=== PATIENT | female | born 2005 | race Caucasian/White ===

== ENCOUNTER 2023-06-08 21:39 | Outpatient (CLI) | payer MEDICAID, SELFPAY ==
[2023-06-08 22:02] VITALS: BP 124/64; PULSE 80; PULSE 83; TEMP 37.2; O2SAT 98
[2023-06-08 22:08] VITALS: BMI 28.0
[2023-06-08 23:34] VITALS: TEMP 36.7
[2023-06-08 23:35] VITALS: BP 128/70; PULSE 67; PULSE 72; O2SAT 98
--- NOTE | 2023-06-09 05:29 | OB.TRI.NOTE ---
HPI - General General Date of Admission: 06/08/23 Date of Service: 06/08/23 Chief Complaint: contractions HPI Narrative JESSIE BECKER, is a 17 F 1 para 0 Maternal Data Information Final RASHI: 07/13/23 Gestational age: 35 0/7 PFSH PFSH Home Medications acetaminophen 650 mg tablet,extended release (8 Hour Pain Reliever) 650 mg PO Q12H PRN see provid 06/08/23 [History Last Taken 06/08/23 19:00 500 mg] vit no.95-ferrous fumarate 28 mg-folic acid 800 mcg tablet () 1 tab PO DAILY 06/08/23 [History Last Taken 06/08/23 10:00] Allergy/AdvReac Type Severity Reaction Status Date / Time famotidine [From Pepcid] Allergy Mild Other Verified 06/08/23 22:11 NST FHR Rate Baby A Baseline: 120 Variability:: Moderate Accelerations:: 15 x 15 Decelerations:: None NST Reactive:: Yes FHR Category:: Category I Uterine Activity:: irreg ctxs Assessment & Plan (1) High-risk in third trimester: PLAN: Threatened labor at 35 weeks gestation. No evidence of active labor. Discharged home to follow-up this week in the office as scheduled or return to labor and delivery as needed. (2) Threatened labor, antepartum:
== END 2023-06-09 00:04 | disposition home or self-care (01) ==
LOC: WPOUT 22:00 → WP 22:01
PROVIDERS: Referring Provider Obstetrics & Gynecology; Visit Provider Obstetrics & Gynecology
DX: O60.03 Preterm labor without delivery, third trimester (principal); Z3A.35 35 weeks gestation of pregnancy
CPT/HCPCS: 59025; 59050; 99221; G0378

== ENCOUNTER 2023-06-23 13:45 | Outpatient (CLI) | payer MEDICAID, SELFPAY ==
[2023-06-23] VITALS (14 sets, daily range): BP systolic 121–143; BP diastolic 61–85; PULSE 62–84; TEMP 37.3; O2SAT 98; BMI 28.7
[2023-06-23 15:22] LABS: Hematocrit 34.7 % (37-47); Hemoglobin 11.3 g/dL (12.0-15.0); Mean Corp Hgb Conc 32.6 g/dL (32-36); Mean Corpuscular Hgb 29.5 pg (27.0-32.0); Mean Corpuscular Volume 90.6 fL (81-99); Mean Platelet Vol. 12.6 fl (6.2-12.0); Platelet Count 231 K/mm3 (150-450); RBC Distribution Width CV 12.7 % (11.6-14.6); RBC Distribution Width SD 41.9 fl (35.1-43.9); Red Blood Count 3.83 M/mm3 (4.2-5.4)
[2023-06-23 15:37] LABS: AST(SGOT) 17 U/L (15-37); Alanine Aminotransfer ALT/SGPT 16 U/L (13-56); Creatinine, Serum 0.66 mg/dL (0.55-1.02); EST Glomerular Filtration Rate 121 mL/min (>60); Est Glom Filt Rate - Afr Amer 146 mL/min (>60); Estimated Creatinine Clearance 137.79 ml/min; Uric Acid 4.9 mg/dL (2.6-6.0)
[2023-06-23 16:22] LABS: Protein, Urine (Random) 15.7 mg/dL (<11.9); Protein:Creat Ratio 239 mg/g CRE (0-200)
--- NOTE | 2023-06-23 20:52 | OB.TRI.NOTE ---
HPI - General General Date of Admission: 06/23/23 Date of Service: 06/23/23 Chief Complaint: contractions HPI Narrative JESSIE BECKER, is a 17 F who presents with contractions for r/o labor. No vb or LOF. No headache. She reports blurred vision that is not new for her and she says she has this at baseline . No other visual changes. No N/V. PFSH PFSH Home Medications acetaminophen 650 mg tablet,extended release (8 Hour Pain Reliever) 650 mg PO Q12H PRN see provid 06/08/23 [History Last Taken 06/08/23 19:00 500 mg] vit no.95-ferrous fumarate 28 mg-folic acid 800 mcg tablet () 1 tab PO DAILY 06/08/23 [History Last Taken 06/22/23] Allergy/AdvReac Type Severity Reaction Status Date / Time olive oil Allergy Severe Other Verified 06/23/23 14:23 famotidine [From Pepcid] Allergy Mild Other Verified 06/23/23 14:21 NST FHR Rate Baby A Baseline: 125 Variability:: Moderate Accelerations:: 15 x 15 Decelerations:: None NST Reactive:: Yes FHR Category:: Category I Uterine Activity:: irregular ctx's Assessment & Plan (1) 37 weeks gestation of : (2) Irregular contractions: PLAN: Pt presents to L&D with ctx's. No cervical change and ctx's are irregular. Does not appear to be in labor at this time. (3) Elevated blood pressure reading: PLAN: Had isolated mild range BP on admission. Serial BP's then normal. Pre e labs WNL. No symptoms of pre e at this time. Pre e precautions given and she has an office visit this week.
== END 2023-06-23 16:35 | disposition home or self-care (01) ==
LOC: WPOUT 13:50 → WP 13:51
PROVIDERS: Referring Provider Obstetrics & Gynecology; Visit Provider Obstetrics & Gynecology
DX: O99.891 Other specified diseases and conditions complicating pregnancy (principal); R03.0 Elevated blood-pressure reading, without diagnosis of hypertension; Z3A.37 37 weeks gestation of pregnancy
CPT/HCPCS: 36415; 59025; 59050 ×2; 82565; 82570; 84156; 84450; 84460; 84550; 85027; G0378 ×2; 99221

== ENCOUNTER 2023-06-24 07:20 | Inpatient (IN) | payer MEDICAID, SELFPAY ==
[2023-06-24] VITALS (27 sets, daily range): BP systolic 118–144; BP diastolic 62–92; PULSE 62–85; RESP 16; TEMP 36.7–37; O2SAT 97–99; BMI 28.9
--- OUTSIDE RECORDS SUMMARY | 2023-06-24 06:57 | XMS RPT_ITS | CCD ---
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 Pripatrice DO Work Phone: [facility] 11-15-2014 human papilloma viru s vaccine, quadrivalent Bernardo Priem DO Work Phone: [facility] 11-15-2014 Meningococcal, MCV4, unspecified conjugate formulation(groups A, C, Y and W-135) Bernardo Priem DO Work Phone: [facility] 11-15-2014 tetanus toxoid, redu irvin diphtheria toxoid, and acellular pertussis vaccine, adsorbed Bernardo Priem DO Work Phone: [facility] Payers Date Payer Category Payer Medicaid [employer] [id number] 2022- [phone] [address] [place] [address] Medicaid [id number] 2020 Unknown [id number] [id number].3. [id number] 2020 Unknown [id number] 1.2.840.075208.1.13.239.2.7.3. [id number] 2003 Unknown [id number] 2.16.840.1.662894.3.579.2.202 2003 Unknown [id number] 2.16.840.1.067756.3.579.2.202 2003 Unknown [id number] 2.16.840.1.895827.3.579.2.202 2003 Unknown [id number] 2.16.840.1.872169.3.579.2.202 2003 Unknown [id number] 2.16.840.1.812749.3.579.2.201 2003 Unknown [id number] 2.16.840.1.988393.3.579.2.201 2003 Unknown [id number] 2.16.840.1.291139.3.579.2.201 2003 Unknown [id number] 2.16.840.1.606493.3.579.2.201 2003 Unknown [id number] 2.16.840.1.312997.3.579.2.201 2003 Unknown [id number] 2.16.840.1.372230.3.579.2.201 2003 Unknown [id number] 2.16.840.1.659918.3.579.2.201 2003 Unknown [id number] 2.16.840.1.358725.3.579.2.201 2003 Unknown [id number] 2.16.840.1.825149.3.579.2.201 2003 Unknown [id number] 2.16.840.1.111302.3.579.2.201 2003 Unknown [id number] 2.16.840.1.745989.3.579.2.201 1979 Unknown [id number] 2.16840.1.169980.3.579.2.202 1979 Unknown [id number] 2.16840.1.765961.3.579.2.202 1979 Unknown [id number] 2.16840.1.535318.3.579.2.202 Unknown [id number] 2.16840.1.783867.3.579.2.283 Unknown [employer] SOURCE/DAHP [id number] Effective for all dates [address] [place] [address] HMO 1.2.840.129077.1.13.129.2.7.3. [id number] Unknown [id number] 2.840.1.533255.3.579.2.246 Unknown [id number] 2.16840.1.882041.3.579.2.246 Unknown [id number] 2.16840.1.899874.3.579.2.246 Unknown [id number] 2.16840.1.836974.3.579.2.246 Unknown [id number] 2.16840.1.623886.3.579.2.246 Unknown [id number] 2.16.840.1.471053.3.579.2.246 Unknown [id number] 2.16840.1.803901.3.579.2.246 Unknown [id number] 2.16.840.1.105915.3.579.2.246 Unknown [id number] 2.16840.1.392976.3.579.2.246 Social History Date Type Detail Facility Start: 12-09-2021 End: 05-22-2023 Tobacco smoking status NHIS Smokes tobacco daily [facility] Phone: History of tobacco use Cigarette Smoker B ON [facility] Phone: Start: 12-09-2021 End: 05-22-2023 Cigarettes smoked current (pack per day) - Reported 0.[address] [facility] Start: 12-09-2021 End: 05-22-2023 Tobacco use and exposure Smokeless tobacco non-user [facility] Phone: Start: 12-09-2021 End: 08-24-2022 Alcohol intake Current drinker of alcohol (finding) [facility] Phone: Start: 12-09-2021 History SDOH Alcohol Comment occ [facility] Phone: Start: 2003 Sex Assigned At Not on file B ON [facility] Phone: Start: 11-29-2021 End: 08-24-2022 Exposure to SARS-CoV-2 (event) Not sure [facility] Phone: Start: 12-19-2022 End: 06-06-2023 Alcohol intake Ex-drinker (finding) [facility] Start: 10-20-2022 [facility] Start: 05-22-2023 End: 06-06-2023 Tobacco use panel [facility] The thought of michellei ng myself has occurred to me Never [facility] National Score (1-10 0), lower number is lower risk [address] [facility] Start: 05-22-2023 Alcohol Comment glass of wine on new years [facility] Start: 2003 Sex Assigned At Female [facility] Start: 05-21-2023 Gender identity Identifies as female gender (finding) [facility] Goals Date Patient Goal Desired Activity /State Personal health goal Clinical Notes 05-19-2022 to 06-23-2023 Telephone Encounter - Emely Lopez RN - 06/23/2023 1:15 PM ESTPrenatal Quick Notes - Rosa M Chen APRN.MELVI - 06/16/2023 2:48 PM ESTPatient InstructionsPatient InstructionsDischarge Instructions Note Date & Type Note Facility 06-23-2023 Miscellaneous Notes 2nd risk assessment form submitted 06/23/23 Emely Lopez RN documented in this encounter [facility] 06-16-2023 Miscellaneous Notes RM-Pt doing well. Denies vaginal Bleeding, Leaking fluid, or regular Contractions. Pt reports good movement. Having some [place]. Physical Exam: Gen: no apparent distress Abd: soft, Gravid. Non tender to palpation. See flow sheet GBS done today echo scheduled for 06/30 RTO 1 week Rosa M Chen APRN.MELVI documented in this encounter [facility] 06-16-2023 Instructions Ilene Duarte Ma - 06/16/2023 2:24 PM EST SEQUENTIAL SCREENINGS The [facility] offers sequential screenings for women who are interested in screenings for chromosomal abnormalities and certain defects during a . The sequential screen combines ultrasound and blood tests to determine the risk of chromosomal abnormalities, including Down's Syndrome (Trisomy 21) and Trisomy 18, as well as open neural tube defects including spina bifida. Ultrasound examination is performed between 11 weeks and 13 weeks gestational age. Blood tests are drawn after the ultrasound and again later in the between 15 and 21 weeks gestational age. Please let your physician know if you are interested in this testing. It will require an appointment with our permit technician. This is not an ultrasound performed by a physician in our office during a routine visit. SIGNS AND SYMPTOMS OF LABOR 1. Contractions every 10 minutes or more often 2. Clear, pink, or brownish fluid (water) leaking from vagina 3. Feeling that baby is pushing down, pressure 4. Low, dull backache 5. Cramps that feel like a period 6. Cramps with or without diarrhea If you notice any of the above symptoms, contact our office at [phone] and ask to speak with a nurse. After hours, you can call doctors registry at [phone] OR call [facility] at [phone] and ask to have the doctor implementation analyst paged. If you consider this an emergency, dial 9-1-6 or go to your nearest emergency department. NEED HELP? Are you dealing with a violent or abusive relationship? Are you a victim of rape or sexual assult? Call [facility] ([place]) 24 hour Crisis Hotline: 123.555.5971 or 107-517-2396. MANUAL Your Guide to a Healthy manual is now on-line. Visit [email or web address] ancyGuide to download your free copy documented in this encounter [facility] 06-16-2023 Miscellaneous Notes Rx faxed. Regina Grace RN signed Breast pump [facility]. To SW to sign. Regina Grace RN documented in this encounter [facility] 06-06-2023 Miscellaneous Notes SW- Some acid reflux. No pain, vb, lof. Good FM PE: Gen- NAD, well appearing Abd- Gravid - Quit marijuana use. Working on quitting smoking. Drug screen completed 02/24/23 - H/o depression: Information given on psych and counseling services and recommend establishing - Growth US completed today and final report pending - CF carrier: Completed visit with genetics - FOB with h/o heart anomaly needing corrective surgery: echo ordered and number given to call to schedule. Recommend calling today to get scheduled first available given 34 wk gestation - RTO 1 wk Demi Kerr DO documented in this encounter [facility] 06-06-2023 Instructions Natalie Winchester RN - 06/06/2023 1:37 PM EST To schedule Echo: Options to schedule at [place], [place], or [facility]. [employer] Director's phone number is [phone] Option #3 Counseling and Psychiatry Services [facility] [address] [place] [address] *counseling [facility] [address] [facility] [address] *counseling [address] [id number] *counseling [facility] [address] [place] [address] *counseling and psychiatry [address] [address] *counseling [address] [address] *counseling [place] [address] [facility] [address] *counseling [place] [address] [place] [address] *counseling [facility] [address] [place] [address] [facility] [address] [facility] [address] [facility], [address] [place] [address] *counseling [facility] [address] [place], [place] [id number] [facility] [address] [place], [place] [address] *counseling [facility] [address] [place] [address] [facility] [address] [facility] [address] [facility] [place] [address] *counseling [facility] [address] [place] [address] *counseling [facility] [place] [facility] [address] [place] [address] *counseling and psychiatry [facility], [address] [place], [place] [address] *psychiatry [facility] [phone] *grief counseling, individual and groups *If you ever experience a mental health crisis please call [phone], 911, Please verify with insurance provider for coverage SEQUENTIAL SCREENINGS The [facility] offers sequential screenings for women who are interested in screenings for chromosomal abnormalities and certain defects during a . The sequential screen combines ultrasound and blood tests to determine the risk of chromosomal abnormalities, including Down's Syndrome (Trisomy 21) and Trisomy 18, as well as open neural tube defects including spina bifida. Ultrasound examination is performed between 11 weeks and 13 weeks gestational age. Blood tests are drawn after the ultrasound and again later in the between 15 and 21 weeks gestational age. Please let your physician know if you are interested in this testing. It will require an appointment with our permit technician. This is not an ultrasound performed by a physician in our office during a routine visit. SIGNS AND SYMPTOMS OF LABOR 1. Contractions every 10 minutes or more often 2. Clear, pink, or brownish fluid (water) leaking from vagina 3. Feeling that baby is pushing down, pressure 4. Low, dull backache 5. Cramps that feel like a period 6. Cramps with or without diarrhea If you notice any of the above symptoms, contact our office at [phone] and ask to speak with a nurse. After hours, you can call doctors registry at [phone] OR call [facility] at [phone] and ask to have the doctor implementation analyst paged. If you consider this an emergency, dial [phone]- or go to your nearest emergency department. NEED HELP? Are you dealing with a violent or abusive relationship? Are you a victim of rape or sexual assult? Call [facility] ([place]) 24 hour Crisis Hotline: 371.479.8433 or 486-514-5816. MANUAL Your Guide to a Healthy manual is now on-line. Visit [email or web address] ancyGuide to download your free copy documented in this encounter [facility] 06-05-2023 Note HNO ID: [id number] Author: MIGUELINA GILES LGC Service: ? Author Type: Genetic Counselor Type: Progress Notes Filed: 06/16/2023 14:48 Note Text: Summary: Partner with History of Transposition of the Great Vessels REPRODUCTIVE GENETIC COUNSELING INITIAL VISIT Rima Coffman : 2005 Above identifiers confirmed by Miguelina Giles MS, [facility] Consultation requested by: Azucena Smith APRN, MELVI Date of clinic visit: June 05, 2023 Driver Medic offered/present: No Ms. Coffman is seen via a virtual Distance Health visit today via [employer] platform per patient choice. The visit is conducted synchronously in real-time. I have communicated my name and active licensure. The patient's identity and physical location were verified at the time of this visit. Either the patient or their legal phone representative has been informed of the risks and benefits of -- and alternatives to -- treatment through a remote evaluation and consents to proceed with the evaluation remotely. PRESENTING PROBLEM: Rima Coffman is a 17 year old female referred by Azucena Smith APRN, CNP for genetic counseling to discuss her reported carrier status for cystic fibrosis (CF) and partner with a history of transposition of the great vessels. She attended today's visit alone. REPRODUCTIVE HISTORY: Currently : Yes / 34w3d (by LMP) LMP: 10/06/2022 RASHI: 07/13/2023 history: 1. First . Ms. Coffman's Carrier Screen Result: CF: Reported carrier Hemoglobinopathies: A=97.2 A2=2.8; Patient's MCV: 91.1 fL Caodaism Diseases: Not Applicable Spinal Muscular Atrophy: Unknown Other: Ms. Coffman reports having a [employer] carrier screen performed which identified her as a carrier of CF. A copy of this result is not available to review. exposures: - vitamins or other folate supplementation: Yes - Prescription medicines: Zofran - OTC medicines, herbal medicines, other supplements: Stool softener - Tobacco, alcohol, or illicit drugs: Tobacco use; she states that she stopped marijuana use 2 months ago - Maternal infections or fevers: UTI - Other known/suspected human teratogens: Not Applicable Aneuploidy screening: Reportedly completed. - Noninvasive screening is consistent with a negative result. sex is consistent with male. A copy of this result is not available to review. Ultrasounds: - Unable to locate ultrasound reports in the medical record. Ms. Coffman reports a normal anatomy scan. CVS: Not Applicable Amniocentesis: Discussed today and declined. complications: - Maternal diabetes, hypertension, seizures, other illness: See below - Vaginal bleeding, labor, other complications: No - Decreased movement: Unknown SIGNIFICANT PAST MEDICAL/SURGICAL HISTORIES: Ms. Coffman has a personal history of anxiety, depression, PTSD, chronic migraines and a history of a heart murmur. She denies any surgical history. FAMILY HISTORY: A 3-generation pedigree was obtained for the patient and her partner and will be scanned into patient's EMR. Of note: - Genetic and/or Inherited Disease: None - Common Disorders: Father from unspecified cardiac and fentynl overdose, paternal grandfather from a myocardial infarction, maternal uncle at age 6 years in a motor vehicle accident. - Defects: Sister with Chiari malformation identified at age 11-12 years requiring surgical intervention. This sister is reported to have some developmental delays secondary to childhood trauma and PTSD. - Seizures: None - Recurrent Loss/Infertility: None - MR/DD/Autism: Sister with reported delays as noted above. - : None - Other:None Ms. Coffman's partner, Mr. Quincy Ornelas, is 21 years old, with a history of transposition of the great vessels and his heart turned the wrong way . He required surgical repair in infancy. Mr. Ornelas has a 2-year-old daughter from a previous relationship who is in good health. His family history is notable for a maternal half-sister with an unspecified thyroid disorder. - Patient's ethnicity: White - Partner's ethnicity: Citizen Of [place], [place] - Patient and/or partner did not report -Saudi Arabian, , Mediterranean, Ashkenazi Caodaism and/or Saudi Arabian-Ecuadorean/Cajun ancestries unless noted above. - Patient and partner are NOT consanguineous The remainder of the known family history is negative for infertility, recurrent loss, stillbirth, unexplained infant , defects, malformation syndromes, chromosomal abnormalities, metabolic disorders, developmental delay, mental retardation, known or suspected genetic diseases, and consanguinity except as noted above a (more content not included)... [facility] 06-05-2023 History of Presen t illness Narrative Summary: Partner with History of Transposition of the Great Vessels REPRODUCTIVE GENETIC COUNSELING INITIAL VISIT Rima Coffman : 2005 Above identifiers confirmed by Miguelina Giles MS, [facility] Consultation requested by: Azucena Smith APRN, CNP Date of clinic visit: June 05, 2023 Driver Medic offered/present: No Ms. Coffman is seen via a virtual Distance Health visit today via [employer] platform per patient choice. The visit is conducted synchronously in real-time. I have communicated my name and active licensure. The patient's identity and physical location were verified at the time of this visit. Either the patient or their legal phone representative has been informed of the risks and benefits of -- and alternatives to -- treatment through a remote evaluation and consents to proceed with the evaluation remotely. PRESENTING PROBLEM: Rima Coffman is a 17 year old female referred by Azucena Smith APRN, CNP for genetic counseling to discuss her reported carrier status for cystic fibrosis (CF) and partner with a history of transposition of the great vessels. She attended today's visit alone. REPRODUCTIVE HISTORY: Currently : Yes / 34w3d (by LMP) LMP: 10/06/2022 RASHI: 07/13/2023 history: 1. First . Ms. Coffman's Carrier Screen Result: CF: Reported carrier Hemoglobinopathies: A=97.2 A2=2.8; Patient's MCV: 91.1 fL Caodaism Diseases: Not Applicable Spinal Muscular Atrophy: Unknown Other: Ms. Coffman reports having a [employer] carrier screen performed which identified her as a carrier of CF. A copy of this result is not available to review. exposures: - vitamins or other folate supplementation: Yes - Prescription medicines: Zofran - OTC medicines, herbal medicines, other supplements: Stool softener - Tobacco, alcohol, or illicit drugs: Tobacco use; she states that she stopped marijuana use 2 months ago - Maternal infections or fevers: UTI - Other known/suspected human teratogens: Not Applicable Aneuploidy screening: Reportedly completed. - Noninvasive screening is consistent with a negative result. sex is consistent with male. A copy of this result is not available to review. Ultrasounds: - Unable to locate ultrasound reports in the medical record. Ms. Coffman reports a normal anatomy scan. CVS: Not Applicable Amniocentesis: Discussed today and declined. complications: - Maternal diabetes, hypertension, seizures, other illness: See below - Vaginal bleeding, labor, other complications: No - Decreased movement: Unknown SIGNIFICANT PAST MEDICAL/SURGICAL HISTORIES: Ms. Coffman has a personal history of anxiety, depression, PTSD, chronic migraines and a history of a heart murmur. She denies any surgical history. FAMILY HISTORY: A 3-generation pedigree was obtained for the patient and her partner and will be scanned into patient's EMR. Of note: - Genetic and/or Inherited Disease: None - Common Disorders: Father from unspecified cardiac and fentynl overdose, paternal grandfather from a myocardial infarction, maternal uncle at age 6 years in a motor vehicle accident. - Defects: Sister with Chiari malformation identified at age 11-12 years requiring surgical intervention. This sister is reported to have some developmental delays secondary to childhood trauma and PTSD. - Seizures: None - Recurrent Loss/Infertility: None - MR/DD/Autism: Sister with reported delays as noted above. - : None - Other:None Ms. Coffman's partner, Mr. Quincy Ornelas, is 21 years old, with a history of transposition of the great vessels and his heart turned the wrong way . He required surgical repair in infancy. Mr. Ornelas has a 2-year-old daughter from a previous relationship who is in good health. His family history is notable for a maternal half-sister with an unspecified thyroid disorder. - Patient's ethnicity: White - Partner's ethnicity: Citizen Of [place], [place] - Patient and/or partner did not report -Saudi Arabian, , Mediterranean, Ashkenazi Caodaism and/or Saudi Arabian-Ecuadorean/Cajun ancestries unless noted above. - Patient and partner are NOT consanguineous The remainder of the known family history is negative for infertility, recurrent loss, stillbirth, unexplained infant , defects, malformation syndromes, chromosomal abnormalities, metabolic disorders, developmental delay, mental retardation, known or suspected genetic diseases, and consanguinity except as noted above and on the formal pedigree. GENETIC COUNSELING/DISCUSSION: Ms. Coffman is referred for genetic counseling secondary to her reported carrier status for cystic fibrosis (CF) and her partner's history of a congenital cardiac defect. CYSTIC FIBROSIS Cystic fibrosis (CF) is a genetic disorder characterized by the buildup of thick mucus in the lungs, pancreas, and other organs. This buildup leads to chronic lung infections, pancreatic insufficiency, and respiratory failure over time. More than 95% of males with cystic fibrosis are infertile due to congenital absence of the vas deferens (CAVD). CF is the most common life limiting autosomal recessive disorder; however, given recent advancements in treatment, the average life expectancy for those affected with CF is now into the late 40s and beyond. CF is caused by mutations in the CFTR gene located on chromosome 7. Everyone has 2 copies of the CFTR gene, one inherited from each parent. Individuals with cystic fibrosis have mutations in both copies of their CFTR gene which cause the gene not to work. Without a working copy of the CFTR gene, an individual will be at increased risk to develop the clinical symptoms associated with CF. It is notable that the severity of the condition, specific features, and treatment options available are variable. Although some genotype-phenotype correlations have been proposed, it is difficult to determine the expected clinical severity for any given individual based on genetic mutations alone. An individual who has a variant in 1 of their 2 copies of their CFTR gene is said to be a carrier of cystic fibrosis. Carriers are unaffected individuals who have 1 working and 1 non-working copy of a gene. The chance that someone is a carrier for CF can vary based on their ethnic background with approximately 1:25 non- Caucasians and 1:58 Caucasians reported to be carriers. Ms. Coffman states that carrier screening was performed in her at her initial obstetric provider's office and she was told that she is a carrier of cystic fibrosis (CF). The specific variant responsible for her carrier status is not known as a copy of her result is not available to review. If we assume that Ms. Coffman is a carrier, based on Mr. Ornelas's ethnicity, the chance that any for the couple will be affected with CFTR-related conditions is approximately one percent. The option to pursue carrier screening for Mr. Ornelas was reviewed. If Mr. Ornelas is NOT a carrier, the risk to have a child with this condition is extremely low (<1%). If Mr. Ornelas is a carrier, they would have a 1/4 (25%) chance to have an unaffected, non-carrier child; a 1/2 (50%) chance to have an unaffected child who is a carrier; and a 1/4 or (25%) chance to have a child with CF with each . As Ms. Coffman is 34+ weeks gestation, I discussed that if Mr. Ornelas is tested, his results may or may nor return before she delivers. I reviewed that all babies born in the [facility] are screened for CF at through the [place] [facility]. Ms. Coffman stated that she would just wait for the screen to provide further information. Carrier screening for Mr. Ornelas was declined. It is recommended that Ms. Coffman share her carrier status with her siblings and other family members who may also be at increased risk to be carriers for this disorder. TRANSPOSITION OF THE GREAT ARTERIES (VESSELS) Mr. Ornelas is reported to have a history of transposition of the great vessels and his heart turned the wrong way . Transposition of the great arteries or dextro-transposition of the great arteries (d-TGA) is a congenital defect in which the two main arteries carrying blood out of the heart, the pulmonary artery and the aorta, are switched in position or transposed . In a normal heart, the right side of the heart pumps oxygen-poor blood from the heart to the lungs to the pulmonary artery. The left side of the heart pumps oxygen-rich blood to the rest of the body through the aorta. The aorta is typically behind the pulmonary artery. In d-TGA, oxygen-poor blood from the body enters the right side of the heart. Instead of going to the lungs; however, the blood is pumped directly back out to the rest of the body through the aorta. Oxygen-rich blood from the lungs entering the heart is pumped straight back to the lungs to the main pulmonary artery. In this scenario, d-TGA changes the way blood circulates through the body, leaving a shortage of oxygen-rich blood flowing from the heart to the rest of the body. Without an adequate supply of oxygen-rich blood, the body cannot function properly. Often babies with d-TGA have additional cardiac defects including a ventriculoseptal defect (VSD) or atrial septal defect (ASD), which allow blood to mix so that some oxygen-rich blood can be pumped to the rest of the body. The patent ductus arteriosus (PDA) can also aid in this scenario. Surgical intervention is required for babies born with d-TGA and is often performed through an arterial switch procedure, in which the pulmonary artery and aorta, as well as the coronary arteries, are returned to their normal positions. TGA is rarely associated with chromosomal abnormalities or syndromes, although it has been reported with heterotaxy as well as the 22q11.2 deletion syndrome. Maternal exposure to teratogens as well as uncontrolled diabetes have also been associated with this cardia anomaly. TGA occurs in approximately 0.2-0.3% per 1000 live births, accounts for 5-8% of children with cardiac disease and is observed more often in males than females. I discussed with Emperatrizgretchen that it is possible that Mr. 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 Without further records to review, it is difficult to state with certainty what the underlying extent of the cardiac anomaly is present in Mr. Ornelas. With his verbal permission, I did review his [facility] record, but unfortunately there was no documentation of an echocardiogram or cardiology consultation. I did discuss that given his history, this baby and any future children with Mr. Ornelas would be at increased risk to have a congenital cardiac defect. This risk would be approximately 2-3% and could be for a more mild or severe form of cardiac anomaly. Typically, echocardiogram would be recommended and Ms. Coffman reports that she has only had an anatomy scan performed in which no concerns regarding the baby's heart were identified. As she is scheduled for an ultrasound tomorrow with the [facility], I let her know that I would reach out to those providers to determine if a echocardiogram should be pursued prior to delivery. Ms. Coffman indicated that she understood this information and appreciated the follow-up. In addition, if Mr. Ornelas has not been seen recently by cardiology, a follow-up consultation with consideration of echocardiogram may be warranted. 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 2) Ms. Coffman states that carrier screening was performed in her at her initial obstetric provider's office and she was told that she is a carrier of cystic fibrosis (CF). The specific variant responsible for her carrier status is not known as a copy of her result is not available to review. If we assume that Ms. Coffman is a carrier, based on Mr. Ornelas's ethnicity, the chance that any for the couple will be affected with CFTR-related conditions is approximately one percent. 3) Carrier screening for Mr. Ornelas was offered and declined. The couple will wait for the screen results, given the late gestational age. 4) is encouraged to try to obtain a copy of her result and share her carrier status with her family members. 5) Mr. Ornelas is reported to have a history of transposition of the great vessels and his heart turned the wrong way . Records are not available to review at this time. 6) Mr. Ornelas's history may suggest an underlying heterotaxy/situs abnormality. Follow-up cardiology consultation with echocardiogram may be beneficial for Mr. Ornelas if this has not been performed in some time and records cannot be located to review. 7) Given his history, this baby and any future children with Mr. Ornelas would be at increased risk to have a congenital cardiac defect. This risk would be approximately 2-3% and could be for a more mild or severe form of cardiac anomaly. 8) echocardiogram can be considered but will defer to M given the late gestational age. Ms. Coffman is scheduled for ultrasound tomorrow and a message has been sent to the physician to alert her to this history. 9) Noninvasive screening is reportedly consistent with a negative result. A copy of this result could not be located in her chart. 10) Ms. Coffman reports a previous normal anatomy. A copy of her anatomy scan report could not be located. Thank you for allowing me to participate in Ms. Shafer's care. Please feel free to contact me if either you or the family has questions, or concerns. The patient was seen for a total of 30 minutes, greater than 50% of which was spent [id number]-jo-kyeh counseling. This plan is being carried out under the oversight of Dr. Adrianne Colón. This note will also be sent to the referring provider via the electronic medical record. Miguelina Giles MS, [facility] [place] Licensed, Certified Genetic Counselor EPIC CC: Azucena Smith APRN, MELVI Referring Physician Dr. Pauline Colón (Stator Tester) documented in this encounter [facility] 05-22-2023 Note HNO ID: [id number] Author: AZUCENA SMITH APRN.TIME LOCK EXPERT Service: ? Author Type: Nurse Practitioner Type: Progress Notes Filed: 05/22/2023 16:06 Note Text: INITIAL OB ASSESSMENT HPI: Rima is a 17 year old White Female here to establish Obstetrical Care. Patient's last menstrual period was 10/06/2022. from OB Dating Form. Do you have regular periods/menstrual cycles? Yes was unplanned but accepted Complaints: No OB History T0 L0 SAB0 IAB0 Ectopic0 Multiple0 Live Births0 How many pregnancies have you had before? 0 Have you had a prior gamble between 20w and 36w6d? No Did you present in active spontaneous labor or have ruptured membranes, or advanced cervical dilation (greater than or equal to 4 cm) or effacement? No Did you have a previous baby with a GBS Infection? No Please select all that apply for any prior : N/A Did you have a partner with Herpes? No Prior : never History of 4th degree laceration: No Patient's Risk Screening for delivery: MEDICAL/PSYCHOSOCIAL HISTORY: History of hemorrhage or bleeding concerns: No Thyroid Disease: No History of chronic hypertension: No History of pre-existing diabetes: No BMI 26.36 kg/(m2) History of abnormal pap: No Prior treatment for cervical dysplasia: none. History of STDs: N/A Tobacco use: Yes E-Cigarette/Vaping Use: Yes Caffeine use: Yes coffee some days Drug use: No Alcohol use: No Multivitamin with Folic acid: Not currently Caodaism or heritage: No Would refuse blood transfusion if medically necessary: No No results found for: ABORHD Social Needs: How often does this describe you? I don't have enough money to pay my bills: Sometimes Within the past 12 months, have you worried that your food would run out before you had money to buy more? Sometimes In the past 12 months, has lack of reliable transportation kept you from going to medical appointments or work, or from getting things needed for daily living? Sometimes In the past 12 months, have you had any concerns about having a place to live, or about the condition or quality of your housing? Sometimes Would you like more information on any of the following (please check all that apply)? Centering (group care classes), Ferris Wheel Attendant care Social History: Do you have any history of depression, anxiety, PTSD, or other mood problems? Yes Do you have a history of abuse or trauma that may impact your experience? Yes Are you currently employed? No Depression/Anxiety Screening: denies symptoms of depression. OB Depression and Anxiety Screening- This Encounter (since 05/21/2023) Over the past 2 weeks have you felt down, depressed, or hopeless? Positive - Further Testing Indicated I have been able to laugh and see the funny side of things. As much as I always could I have looked forward with enjoyment to things. As much as I ever did I have blamed myself unnecessarily when things went wrong. Not very often I have been anxious or worried for no good reason. Yes, sometimes I have felt scared or panicky for no good reason. Yes, sometimes Things have been getting on top of me. No, I have been coping as well as ever I have been so unhappy that I have had difficulty sleeping. Not at all I have felt sad or miserable. No, not at all I have been so unhappy that I have been crying. Only occasionally The thought of harming myself has occurred to me. Never [place] Depression Scale Total 6 Feeling nervous, anxious or on edge 0-Not at all Not being able to stop or control worrying 0-Not al all Anxiety Pre-Screening Total (If >/= 3 additional questions will be reviewed) 0 ACOG Recommended Screening: Screening for early gestational diabetes testing: Criteria for early testing requires elevated BMI plus one other risk factor: BMI 26.36 kg/(m2) (risk factor if > than 25 or 23 in Americans) Additional risk factors: First-degree relative with diabetes She does not meet ACOG criteria for early gestational DM screening. Screening for low dose aspirin use for the prevention of pre-eclampsia: Low dose aspirin should be considered if the patient has one high or two moderate risk factors: High risk factors: None Moderate risk ractors: Nulliparity She does not meet criteria for low dose ASA Marital Status:Co-habitating Partner: Name: Quincy Mahoney Age: 21 Occupation: [employer] Gender: Male History of STDs: None History reviewed. No pertinent past medical history. History reviewed. No pertinent surgical history. No current outpatient medications on file. No current facility-administered medications for this visit. Allergies As of Date: 05/22/2023 Allergen Noted Reaction GRASS POLLEN 10/22/2018 Intolerance OLIVE OIL 07/13/2020 Intolerance POLLEN EXTRACTS 10/22/2018 Intolerance RANITIDINE 06/22/2016 Intolerance MIL (more content not included)... [facility] 02-24-2023 Note Patient presents for care. Infant active. No concerns today. S=D GFM RTO 4 week Anatomy US today Education: PTL and FMA precautions Provider Locations 02-24-2023 Note Patient presents for care. Infant active. No concerns today. S=D GFM Anatomy US today GTT RTO 4 week Education: labor and FMA precautions Provider Locations 12-19-2022 Emergency department Note Patient discharged to home, alert and oriented, skin warm, dry and pink. Denies needs and or questions. Will follow-up as directed, patient encouraged to return for worsening or new symptoms or other concerns. [facility] 12-19-2022 Emergency department Note Patient discharged to home, alert and oriented, skin warm, dry and pink. Denies needs and or questions. Will follow-up as directed, patient encouraged to return for worsening or new symptoms or other concerns. EMERGENCY DEPARTMENT - ATTENDING NOTE I have personally seen and examined this patient. I have fully participated in the care of this patient. I have reviewed and agree with all pertinent clinical information including history, physical exam, labs, radiographic studies and the plan. I have also reviewed and agree with the medications, allergies and past medical history sections for this patient. Bernardo Xie D.O. Patient is here with headache, some generalized headache, started this morning around 10:00, slowly progressively getting worse. The patient does have a history of headaches. The patient states this is very typical for typical headache. She is about 10 weeks . The patient states that she is somewhat light sensitive, sound sensitive. This is again typical. Patient denies any other chest pain, denies shortness of breath, denies abdominal pain, denies any other focal weakness or numbness. Patient at this time is feeling improvement. The patient examination is otherwise benign, there is no nuchal rigidity. Pupils are equal and reactive. The patient has regular rate and rhythm and clear breath sounds on examination. No abdominal pain on examination. Patient at this time would like to go home. The patient was given Phenergan here in the emergency room. She has Zofran at home, she is instructed she can use Tylenol for her headaches. 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 Patient will be discharged in otherwise stable condition. I do not see any evidence of subarachnoid hemorrhage, meningitis, nuchal rigidity. Do not believe the patient has any evidence of preeclampsia. Patient will be discharged home. Final impression: ICD-10-CM ICD-9-CM 1. Migraine without status migrainosus, not intractable, unspecified migraine type G43.909 346.90 Electronically signed by: Bernardo Xie DO, 12/19/2022 Pt to triage c/o migraine since 1000 today. Pt also 10 weeks . Aox4, respirations even/unlabored. documented in this encounter [facility] 12-19-2022 Physician Emergency department Note EMERGENCY DEPARTMENT - ATTENDING NOTE I have personally seen and examined this patient. I have fully participated in the care of this patient. I have reviewed and agree with all pertinent clinical information including history, physical exam, labs, radiographic studies and the plan. I have also reviewed and agree with the medications, allergies and past medical history sections for this patient. Bernardo Xie D.O. Patient is here with headache, some generalized headache, started this morning around 10:00, slowly progressively getting worse. The patient does have a history of headaches. The patient states this is very typical for typical headache. She is about 10 weeks . The patient states that she is somewhat light sensitive, sound sensitive. This is again typical. Patient denies any other chest pain, denies shortness of breath, denies abdominal pain, denies any other focal weakness or numbness. Patient at this time is feeling improvement. The patient examination is otherwise benign, there is no nuchal rigidity. Pupils are equal and reactive. The patient has regular rate and rhythm and clear breath sounds on examination. No abdominal pain on examination. Patient at this time would like to go home. The patient was given Phenergan here in the emergency room. She has Zofran at home, she is instructed she can use Tylenol for her headaches. 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 Patient will be discharged in otherwise stable condition. I do not see any evidence of subarachnoid hemorrhage, meningitis, nuchal rigidity. Do not believe the patient has any evidence of preeclampsia. Patient will be discharged home. Final impression: ICD-10-CM ICD-9-CM 1. Migraine without status migrainosus, not intractable, unspecified migraine type G43.909 346.90 Electronically signed by: Bernardo Xie DO, 12/19/2022 [facility] Phone: 12-19-2022 Emergency department Note Pt to triage c/o migraine since 1000 today. Pt also 10 weeks . Aox4, respirations even/unlabored. [facility] 08-24-2022 [facility] Discharg e instructions Lm Puckett DO - 08/24/2022 2:47 PM EDT Follow-up with primary care as soon as possible Take OTC medication as needed for pain Return to the ED if symptoms persist or worsen or if you start having shortness of breath or any other symptom of concern. The following attachments cannot be sent through Care Everywhere.Chest Pain (Surinamese)documented in this encounter [facility] [employer] Phone: 08-02-2022 [facility] Discharg e instructions Donal Nina MD - 08/02/2022 6:51 PM EDT Return immediately to the emergency department if you experience new or worsening symptoms, changes in color or sensation of your arm or hand, increased pain, or for any other concerns. documented in this encounter [facility] [employer] Phone: 07-17-2022 Note Encounter Department : [facility] Progress Notes by Nel Cabrera DO at 07/17/2022 3:30 PM Author: Nel Anisha Kylee, DOService: -Author Type: Physician Filed: 07/20/2022 10:20 PMEncounter Date: 07/17/2022Status: Signed Property Analyst: Nel Cabrera DO (Physician) Rima Coffman [address] [place], [place] [id number] : 16 y.o.: 2005Phone: (home) Encounter Date: 07/20/2022 Vitals BP 118/74 Pulse 84 Ht 5' 3 (1.6 m) Wt 132 lb 1.6 oz (59.9 kg) SpO2 98% BMI 23.40 kg/m? Assessment and Plan Diagnoses and all orders for this visit: Amenorrhea (Primary) Overview: 07-17-22 Hx irregular menses LMP 06-18-22 Office Urine Hcg -neg Assessment AND Plan: Rx PNV Lab Serum Hcg Orders: - POCT urine - CBC w/ Diff-Complete Blood Count (All) - Vitamin D 25 Hydroxy - Comprehensive Metabolic Panel - Lipid Panel (All) - TSH W/REFLEX FREE T4 - Serum - HCG Qualitative - viamin-ferrous fumarate-folic acid 27 mg iron- 800 mcg per tablet Dispense: 60 tablet; Refill: 3 Primary insomnia Overview: Insomnia Assessment AND Plan: Ref to Behavioral Med, does not want ref to Sleep med at this time Orders: - CBC w/ Diff-Complete Blood Count (All) - Vitamin D 25 Hydroxy - Comprehensive Metabolic Panel - Lipid Panel (All) - TSH W/REFLEX FREE T4 Palpitations Overview: Hx Palpitaions Assessment AND Plan: Ref Cardiology, Dr Valle Orders: - CBC w/ Diff-Complete Blood Count (All) - Vitamin D 25 Hydroxy - Comprehensive Metabolic Panel - Lipid Panel (All) - Ambulatory referral to Cardiology - TSH W/REFLEX FREE T4 CARYN (generalized anxiety disorder) Overview: Hx Anxiety Assessment AND Plan: Ref to Behavioral Health Orders: - Vitamin D 25 Hydroxy - TSH W/REFLEX FREE T4 PTSD (post-traumatic stress disorder) - Vitamin D 25 Hydroxy - TSH W/REFLEX FREE T4 - AMB REFERRAL TO BEHAVIORAL HEALTH Depression, acute Overview: Hx Depression Assessment AND Plan: Ref to Behavioral Health Orders: - Vitamin D 25 Hydroxy - TSH W/REFLEX FREE T4 - AMB REFERRAL TO BEHAVIORAL HEALTH Chronic anemia - CBC w/ Diff-Complete Blood Count (All) - Vitamin D 25 Hydroxy - Comprehensive Metabolic Panel - Lipid Panel (All) Vitamin D deficiency [place] Vit D Assessment AND Plan: Lab Orders: - Vitamin D 25 Hydroxy Attention deficit hyperactivity disorder (ADHD), combined type (Chronic) - Vitamin D 25 Hydroxy - TSH W/REFLEX FREE T4 - AMB REFERRAL TO BEHAVIORAL HEALTH Family history of celiac disease - CELIAC DISEASE PANEL ([facility] AND [facility] ONLY) Attention deficit hyperactivity disorder (ADHD), predominantly inattentive type Overview: Hx ADHD Assessment AND Plan: Ref to Behavioral Health Tobacco abuse (Chronic) Overview: +smoker Assessment AND Plan: Encouraged to quit Tachycardia Overview: Hx Tachycardia Assessment AND Plan: Ref Cardiology, Dr Valle HPI Here with friend to establish PCP. +smoker Born in [place], living in [place] Hx irregular menses LMP 2-14-23 Hx PTSD, Anxiety AND Depression - needs referral to Behavioral Health Hx Tachycardia. States has intermittent palpitations x yrs Family Hx: Mother 43 DM2, Anxiety Father Fentanyl over dose, Anxiety, Depression, Cancer Other Associated symptoms include fatigue and nausea. Pertinent negatives include no abdominal pain, arthralgias, chest pain, chills, congestion, coughing, fever, rash, sore throat or vomiting. Dizziness Associated symptoms: nausea and palpitations Associated symptoms: no chest pain, no diarrhea, no shortness of breath and no vomiting Chief Complaint Chief Complaint Patient presents with -Other Est pcp -Dizziness months The patient is here for the following problems which were assessed/reviewed at today's visit. Pertinent data reviewed with patient at visit Review of Systems: As noted in HPI Review of Systems Constitutional: Positive for fatigue. Negative for chills and fever. HENT: Negative. Negative for congestion, ear pain, rhinorrhea and sore throat. Eyes: Negative. Negative for pain, discharge, redness and visual disturbance. Respiratory: Negative. Negative for cough and shortness of breath. Cardiovascular: Positive for palpitations. Negative for chest pain. Gastrointestinal: Positive for nausea. Negative for abdominal pain, constipation, diarrhea and vomiting. Endocrine: Negative. Genitourinary: Negative. Negative for difficulty urinating, dysuria, flank pain and hematuria. Musculoskeletal: Negative. Negative for arthralgias and back pain. Skin: Negative for color change and rash. Allergic/Immunologic: Positive for environmental allergies. Neurological: Negative. Negative for seizures and syncope. Hematological: Negative. Psychia (more content not included)... [facility] 05-19-2022 Note PROCEDURE: CT-TRAUMA CHEST/ABD/PELVIS W IV CONTRAST ONLY, CT-SPINE THORACIC W CONTRAST, CT-SPINE LUMBAR W CONTRAST DATE OF EXAM: 05/19/2022 6:14 PM DEMOGRAPHICS: 16 years old Female INDICATION: Lamad-izxgxfa-lqehlq trauma, blunt Contrast utilized and relevant clinical information: History: Engoo-yqyqqll-icvfzc trauma, blunt. Number of Series/Images: 5. COMPARISON: No existing relevant imaging study corresponding to the same anatomical region is available. TECHNIQUE: Contiguous axial slices of the chest, abdomen and pelvis were submitted after the IV administration of contrast. Oral contrast was not utilized. Additional coronal reformatted images were provided. Transaxial, coronal and sagittal reformations of the thoracic and lumbar spine are also provided. Contrast Medication(s): IOHEXOL 350 MG/ML IV SOLN Amount Administered = 50 mL DOSE OPTIMIZATION: CT radiation dose optimization techniques (automated exposure control, and use of iterative reconstruction techniques, or adjustment of the mA and/or kV according to patient size) were used to limit patient radiation dose. FINDINGS: Chest and thoracic spine: Mediastinum is unremarkable. Thoracic aorta is normal in course and caliber. No pneumothorax, effusion or focal airspace disease. The central airways are patent. No bronchiectasis. Thoracic kyphosis is within normal limits. Thoracic vertebral body heights and intervertebral disc spaces are preserved. No acute fracture or listhesis. Abdomen/pelvis and lumbar spine: The liver, gallbladder, pancreas, spleen, and adrenal glands are unremarkable. Kidneys show no worrisome lesions, hydronephrosis, or calculi. Urinary bladder is unremarkable. The anteverted uterus. Right ovarian dominant follicle/functional cyst measures 1.3 cm. Small and large bowel are normal in caliber. Appendix is normal. No free air, free fluid, or lymphadenopathy identified. Aorta is normal in course and caliber. Superficial soft tissues are unremarkable. No acute or aggressive appearing skeletal findings. Lumbar lordosis is within normal limits. Lumbar vertebral body heights and intervertebral disc spaces are preserved. No acute fracture or listhesis. Lumbar transverse and spinous processes are intact. IMPRESSION: IMPRESSION: No acute/traumatic findings in the chest, abdomen or pelvis. Intact thoracic and lumbar spine. Electronically Signed by: Walt Bautista MD, 05/19/2022 6:21 PM [facility] 05-19-2022 Note PROCEDURE: CT-TRAUMA CHEST/ABD/PELVIS W IV CONTRAST ONLY, CT-SPINE THORACIC W CONTRAST, CT-SPINE LUMBAR W CONTRAST DATE OF EXAM: 05/19/2022 6:14 PM DEMOGRAPHICS: 16 years old Female INDICATION: Fawdu-twzwenr-urqcok trauma, blunt Contrast utilized and relevant clinical information: History: Ngrwb-vrwzddr-bxplgb trauma, blunt. Number of Series/Images: 5. COMPARISON: No existing relevant imaging study corresponding to the same anatomical region is available. TECHNIQUE: Contiguous axial slices of the chest, abdomen and pelvis were submitted after the IV administration of contrast. Oral contrast was not utilized. Additional coronal reformatted images were provided. Transaxial, coronal and sagittal reformations of the thoracic and lumbar spine are also provided. Contrast Medication(s): IOHEXOL 350 MG/ML IV SOLN Amount Administered = 50 mL DOSE OPTIMIZATION: CT radiation dose optimization techniques (automated exposure control, and use of iterative reconstruction techniques, or adjustment of the mA and/or kV according to patient size) were used to limit patient radiation dose. FINDINGS: Chest and thoracic spine: Mediastinum is unremarkable. Thoracic aorta is normal in course and caliber. No pneumothorax, effusion or focal airspace disease. The central airways are patent. No bronchiectasis. Thoracic kyphosis is within normal limits. Thoracic vertebral body heights and intervertebral disc spaces are preserved. No acute fracture or listhesis. Abdomen/pelvis and lumbar spine: The liver, gallbladder, pancreas, spleen, and adrenal glands are unremarkable. Kidneys show no worrisome lesions, hydronephrosis, or calculi. Urinary bladder is unremarkable. The anteverted uterus. Right ovarian dominant follicle/functional cyst measures 1.3 cm. Small and large bowel are normal in caliber. Appendix is normal. No free air, free fluid, or lymphadenopathy identified. Aorta is normal in course and caliber. Superficial soft tissues are unremarkable. No acute or aggressive appearing skeletal findings. Lumbar lordosis is within normal limits. Lumbar vertebral body heights and intervertebral disc spaces are preserved. No acute fracture or listhesis. Lumbar transverse and spinous processes are intact. IMPRESSION: IMPRESSION: No acute/traumatic findings in the chest, abdomen or pelvis. Intact thoracic and lumbar spine. Electronically Signed by: Walt Bautista MD, 05/19/2022 6:21 PM [facility] 05-19-2022 Note PROCEDURE: CT-TRAUMA CHEST/ABD/PELVIS W IV CONTRAST ONLY, CT-SPINE THORACIC W CONTRAST, CT-SPINE LUMBAR W CONTRAST DATE OF EXAM: 05/19/2022 6:14 PM DEMOGRAPHICS: 16 years old Female INDICATION: Fnkjm-lsqgcdd-soadlp trauma, blunt Contrast utilized and relevant clinical information: History: Yqzkj-ravhwjh-psakis trauma, blunt. Number of Series/Images: 5. COMPARISON: No existing relevant imaging study corresponding to the same anatomical region is available. TECHNIQUE: Contiguous axial slices of the chest, abdomen and pelvis were submitted after the IV administration of contrast. Oral contrast was not utilized. Additional coronal reformatted images were provided. Transaxial, coronal and sagittal reformations of the thoracic and lumbar spine are also provided. Contrast Medication(s): IOHEXOL 350 MG/ML IV SOLN Amount Administered = 50 mL DOSE OPTIMIZATION: CT radiation dose optimization techniques (automated exposure control, and use of iterative reconstruction techniques, or adjustment of the mA and/or kV according to patient size) were used to limit patient radiation dose. FINDINGS: Chest and thoracic spine: Mediastinum is unremarkable. Thoracic aorta is normal in course and caliber. No pneumothorax, effusion or focal airspace disease. The central airways are patent. No bronchiectasis. Thoracic kyphosis is within normal limits. Thoracic vertebral body heights and intervertebral disc spaces are preserved. No acute fracture or listhesis. Abdomen/pelvis and lumbar spine: The liver, gallbladder, pancreas, spleen, and adrenal glands are unremarkable. Kidneys show no worrisome lesions, hydronephrosis, or calculi. Urinary bladder is unremarkable. The anteverted uterus. Right ovarian dominant follicle/functional cyst measures 1.3 cm. Small and large bowel are normal in caliber. Appendix is normal. No free air, free fluid, or lymphadenopathy identified. Aorta is normal in course and caliber. Superficial soft tissues are unremarkable. No acute or aggressive appearing skeletal findings. Lumbar lordosis is within normal limits. Lumbar vertebral body heights and intervertebral disc spaces are preserved. No acute fracture or listhesis. Lumbar transverse and spinous processes are intact. IMPRESSION: IMPRESSION: No acute/traumatic findings in the chest, abdomen or pelvis. Intact thoracic and lumbar spine. Electronically Signed by: Walt Bautista MD, 05/19/2022 6:21 PM [facility] 05-19-2022 Note PROCEDURE: CT-HEAD W /O CONTRAST, CT-SPINE CERVICAL WO CONTRAST DATE OF EXAM: 05/19/2022 6:06 PM DEMOGRAPHICS: 16 years old Female INDICATION: Head trauma, moderate-severe History: Head trauma, moderate-severe. Number of Series/Images: 5. COMPARISON: No existing relevant imaging study corresponding to the same anatomical region is available. TECHNIQUE: Contiguous axial slices of the head and cervical spine were submitted without IV contrast. DOSE OPTIMIZATION: CT radiation dose optimization techniques (automated exposure control, and use of iterative reconstruction techniques, or adjustment of the mA and/or kV according to patient size) were used to limit patient radiation dose. Findings: Head CT: The ventricles, cisterns and sulci are within normal limits. No intra parenchymal or extra-axial mass, hemorrhage, or mass effect. Rudd and white-matter differentiation is within normal limits. Normal spherical shape of the globes. Imaged portions of the paranasal sinuses and mastoid air cells are without significant abnormality. No skull or facial fracture visualized. Cervical spine CT: No acute cervical spine fracture or listhesis. Vertebral body heights and intervertebral disc spaces are preserved. The atlantodens interval is normal and the odontoid process is intact. Facet joints are intact. The paraspinal soft tissues as well as the imaged mucosal spaces of the neck demonstrate an unremarkable noncontrast appearance. Incomplete evaluation of the lung apices is unremarkable. IMPRESSION: IMPRESSION: No acute intracranial hemorrhage or mass effect. No fracture of the skull or cervical spine. Electronically Signed by: Walt Bautista MD, 05/19/2022 6:[address] [place] [address] 05-19-2022 Note PROCEDURE: CT-HEAD W /O CONTRAST, CT-SPINE CERVICAL WO CONTRAST DATE OF EXAM: 05/19/2022 6:06 PM DEMOGRAPHICS: 16 years old Female INDICATION: Head trauma, moderate-severe History: Head trauma, moderate-severe. Number of Series/Images: 5. COMPARISON: No existing relevant imaging study corresponding to the same anatomical region is available. TECHNIQUE: Contiguous axial slices of the head and cervical spine were submitted without IV contrast. DOSE OPTIMIZATION: CT radiation dose optimization techniques (automated exposure control, and use of iterative reconstruction techniques, or adjustment of the mA and/or kV according to patient size) were used to limit patient radiation dose. Findings: Head CT: The ventricles, cisterns and sulci are within normal limits. No intra parenchymal or extra-axial mass, hemorrhage, or mass effect. Rudd and white-matter differentiation is within normal limits. Normal spherical shape of the globes. Imaged portions of the paranasal sinuses and mastoid air cells are without significant abnormality. No skull or facial fracture visualized. Cervical spine CT: No acute cervical spine fracture or listhesis. Vertebral body heights and intervertebral disc spaces are preserved. The atlantodens interval is normal and the odontoid process is intact. Facet joints are intact. The paraspinal soft tissues as well as the imaged mucosal spaces of the neck demonstrate an unremarkable noncontrast appearance. Incomplete evaluation of the lung apices is unremarkable. IMPRESSION: IMPRESSION: No acute intracranial hemorrhage or mass effect. No fracture of the skull or cervical spine. 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 Diagnosis 34 weeks gestation of - Primary state, incidental High risk teen in third trimester Family history of congenital heart defect Family history of congenital anomalies [facility] [place] [facility]* Diagnosis Encounter for anatomic survey- Primary with care elsewhere in third trimester 34 weeks gestation of state, incidental [facility] [place] [facility]* Diagnosis 36 weeks gestation of - Primary state, incidental documented in this encounter [facility] Discharge instructions* Attachments The following attachments cannot be sent through Care Everywhere. * Seizure (Surinamese) [facility]: Hospital Discharge instructions* Attachments The following attachments cannot be sent through Care Everywhere. * Migraine Headache (Surinamese) documented in [facility] HealthReason for referral (narrative)* Outpatient Procedure (Routine) - Pending Review Specialty Diagnoses / Procedures Referred By Julio wade [facility] Diagnoses 34 weeks gestation of High risk teen in third trimester Family history of congenital heart defect Procedures ECHO Demi Kerr MD [address] [place] [address] [facility] [place] [address] [place] [address] Referral ID Status Reason Start Date Expiration Date Visits Requested Visits Authorized [id number] Pending Review Auto-Generat ed Referral 06/06/2023 06/05/2024 1 1 [facility] Summary Purpose Family History No Family History Records FoundNo Family History Records FoundNo Family History Records FoundNo Family History Records FoundNo Family History Records FoundNo Family History Records FoundNo Family History Records Found Advance Directives No Advanced Directives Records FoundNo Advanced Directives Records FoundNo Advanced Directives Records FoundNo Advanced Directives Records FoundNo Advanced Directives Records FoundNo Advanced Directives Records FoundNo Advanced Directives Records Found Health Concerns Problem Noted Date Diagnosed Date [facility] - [facility] 05/22/2023 Education - [place] 05/22/2023 Problem Noted Date Diagnosed Date [facility] - [facility] 05/22/2023 Education - [place] 05/22/2023 Problem Noted Date Diagnosed Date [facility] - [facility] 05/22/2023 Education - [place] 05/22/2023 Additional Source Comments Reason for Visit (unrecogniz ed section and content) Reason Comments Wrist Injury Pt reports injury to left wrist last night after falling off a clothesline that pt was using as a hillbilly shady totter . No swelling or deformity noted. Pain currently 8/10, pt has not taken anything for pain. Reason Comments Chest Pain Pt c/o generalized s harp pain all over her chest for the past three days. Reason Comments Headache-Recurrent Or Known Dx Migraines Reason Comments Genetics Care Specialty Diagnoses / Procedures Referred By Julio wade Referred To Contact Diagnoses High risk teen in third trimester 32 weeks gestation of Procedures CONSULT TO MEDICAL GENETICS - MEDICAL GENETICS COUNSELING EACH 30 MINUTES Azucena Smith APRN.MELVI [address] [place] [address] [facility] [address] [place] [address] Referral ID Status Reason Start Date Expiration Date V isits Requested Visits Authorized [id number] Closed PCP Requested Referral Auto-Generated Referral 05/22/2023 05/21/2024 1 1 Reason Onset Date Comments Care 06/06/2023 Reason Comments US Specialty Diagnoses / Procedures Referred By Contaleisha t Referred To Contact [facility] Diagnoses Tobacco smoking complicating in third trimester Marijuana use during High risk teen in third trimester Procedures OBSTETRIC ULTRASOUND WHI US PREG UTERUS AFTER 1ST TRIMEST GESTATION Azucena Smith APRN.CNP [address] [place] [address] [facility] [address] [place] [address] Referral ID Status Reason Start Date Expiration Date V isits Requested Visits Authorized [id number] Closed Auto-Generate d Referral 05/22/2023 05/21/2024 1 1 Reason Comments Breast Pump Reason Onset Date Comments Care 06/16/2023 Reason Comments PRAF INFORMATION SOURCE (unrecogn ized section and content) DATE CREATED AUTHOR AUTHOR'S ORGANIZ ATION 10/13/2022 [facility] DATE CREATED AUTHOR AUTHOR'S ORGANIZ ATION 02/26/2023 [facility] DATE CREATED AUTHOR AUTHOR'S ORGANIZ ATION 03/29/2023 Provider Locatio ns DATE CREATED AUTHOR AUTHOR'S ORGANIZ ATION 05/14/2023 [facility] DATE CREATED AUTHOR AUTHOR'S ORGANIZ ATION 05/30/2023 [facility] DATE CREATED AUTHOR AUTHOR'S ORGANIZ ATION 06/19/2023 [facility] Ordered Prescriptions (unrec ognized section and content) Scheduled Active and Recently Administ ered Medications (unrecognized section and content) PRN Medication Order 12/17/2022 12/18/2022 12/19/2022 acetaminophen (TYLENOL) tablet 650 mg 650 mg, Oral, EVERY 6 HOURS PRN, Starting on [place] 12/19/22 at 1417, Until Discontinued, Pain 1431 (Given - Provid er: Atul Valentine RN) promethazine (PHENERGAN) tablet 12.5 mg 12.5 mg, Oral, EVERY 6 HOURS PRN, Starting on [place] 8 at 1417, Until Discontinued, Nausea/Vomiting 1431 (Given - Provid er: Atul Valentine RN) Care Teams (unrecognized sec tion and content) Source Comments (unrecognize d section and content) In the event this informatio n is protected by the Federal Confidentiality of Alcohol and Drug Abuse Patient Records regulations: The Federal rules restrict any use of the information to criminally investigate or prosecute any alcohol or drug abuse patient.[facility] the event this information is protected by the Federal Confidentiality of Alcohol and Drug Abuse Patient Records regulations: The Federal rules restrict any use of the information to criminally investigate or prosecute any alcohol or drug abuse patient.[facility] the event this information is protected by the Federal Confidentiality of Alcohol and Drug Abuse Patient Records regulations: The Federal rules restrict any use of the information to criminally investigate or prosecute any alcohol or drug abuse patient.[facility] Center[facility] the event this information is protected by the Federal Confidentiality of Alcohol and Drug Abuse Patient Records regulations: The Federal rules restrict any use of the information to criminally investigate or prosecute any alcohol or drug abuse patient.[facility] Center[facility] the event this information is protected by the Federal Confidentiality of Alcohol and Drug Abuse Patient Records regulations: The Federal rules restrict any use of the information to criminally investigate or prosecute any alcohol or drug abuse patient.[facility] Center[facility] the event this information is protected by the Federal Confidentiality of Alcohol and Drug Abuse Patient Records regulations: The Federal rules restrict any use of the information to criminally investigate or prosecute any alcohol or drug abuse patient.[facility] FOR RECORDS PERTAINING TO PATIENTS WHO ARE OR HAVE BEEN ENROLLED IN A CHEMICAL DEPENDENCY/SUBSTANCEABUSE PROGRAM, SOME INFORMATION MAY BE OMITTED. This clinical summary was aggregated from multiple sources. Caution should be exercised in using it in the provision of clinical care. This summary normalizes information from multiple sources, and as a consequence, information in this document may materially change the coding, format and clinical context of patient data. In addition, data may be omitted in some cases. CLINICAL DECISIONS SHOULD BE BASED ON THE PRIMARY CLINICAL RECORDS. [facility] [employer] [facility]. provides no warranty or guarantee of the accuracy or completeness of information in this document.
--- OUTSIDE RECORDS SUMMARY | 2023-06-24 07:33 | XMS RPT_ITS | CCD ---
Author Name Unknown Address [address] [place] [address] Organization [facility] Care Team Providers Care Gridcap Machine Operator Name Role Phone Unavailable Primary Care Provider [...] Unavailable Rachid Agudelo MD Primary Care Provider RACHID AGUDELO Primary Care Unavailable RACHID AGUDELO [...] Unavailable LOIDA GARZA Referring Unavail able LOIDA GARZA Attending Unavail able NEL CABRERA Primary Care [...] Date of Onset Reaction(s) Facility (6 sources) [place] Extract; Translations: [OLIVE OIL] Drug Allergy 1 [facility] (11 sources) cow milk allergenic extract; Translations: [MILK] Drug Allergy [address] [facility] (10 sources) Grass pollen; Translations: [GRASS POLLEN] Propensity to adverse reactions 9 Other - comment required, Intolerance [facility] (7 sources) olive oil Drug Allergy 1 Other - comment required, Intolerance [facility] (10 sources) Pollen; Translations: [POLLEN EXTRACTS] Propensity to adverse reactions 9 Other - comment required, Intolerance [facility] (10 sources) raNITIdine; Translations: [RANITIDINE] Drug Allergy 7 Other - comment required, Intolerance [facility] (1 source) raNITIdine; Translations: [RANITIDINE HCL] Drug Allergy [address] [facility] Repository Medications Current Medications Medication Drug Class(es) [...] Drug Class(es) Dates Sig (Normalized) Sig (Original) Ldyazikp-Gl-Fdp-Fe- FA tab (6 sources) Start: 05-22-2023 take 1 tablet by mouth once daily Hekfnklb-Bo-Qau-Fe -FA tab Take 1 tablet by mouth [...] Body weight 76.2 kg Rosa M Gustavo PARQUETRY LAYER.SULFURIC ACID PLANT SUPERVISOR Work Phone: [facility] 06-16-2023 14:26-0500 Diastolic blood pressure 70 mm[Hg] Rosa M [place] PARQUETRY LAYER.SULFURIC ACID PLANT SUPERVISOR Work Phone: [facility] 06-16-2023 14:26-0500 Systolic blood pressure 120 mm[Hg] Rosa M [place] PARQUETRY LAYER.SULFURIC ACID PLANT SUPERVISOR Work Phone: [facility] 02-02-2024 13:44-0500 Body weight 74.84 kg Demi Kerr MD Work Phone: [facility] 06-06-2023 13:44-0500 Diastolic blood pressure 64 mm[Hg] Demi Kerr MD Work Phone: [facility] 06-06-2023 13:44-0500 Systolic blood pressure 114 mm[Hg] Demi Krer MD Work Phone: [facility] 12-19-2022 15:00-0400 Body temperature 98.4 [degF] Bernardo Priem DO Work Phone: [facility] 12-19-2022 15:00-0400 Diastolic blood pressure 70 mm[Hg] Bernardo Priem DO Work Phone: [facility] 12-19-2022 15:00-0400 Heart rate 80 /min Bernardo Priem DO Work Phone: [facility] 12-19-2022 15:00-0400 Respiratory rate 16 /min Bernadro Priem DO Work Phone: [facility] 12-19-2022 15:00-0400 SaO2% (BldA) [Mass fraction] 99 % Bernardo Priem DO Work Phone: [facility] 12-19-2022 15:00-0400 Systolic blood pressure 122 mm[Hg] Bernardo Priem DO Work Phone: [facility] 12-19-2022 13:09-0400 Body height 160 cm Bernardo Priem DO Work Phone: [facility] 12-19-2022 13:09-0400 Body mass index (BMI) [Ratio] 23.03 kg/m2 Bernardo Priem DO Work Phone: [facility] 12-19-2022 13:09-0400 Body weight 58.97 kg Bernardo Priem DO Work Phone: [facility] 08-24-2022 13:46-0400 Body height 160 cm Lm Diggsoro DO Work Phone: [facility] 08-24-2022 13:46-0400 Body mass index (BMI) [Ratio] 23.38 kg/m2 Lm Puckett DO Work Phone: [facility] [employer] 08-24-2022 13:46-0400 Body temperature 98.29 [degF] Lm Puckett DO Work Phone: [facility] 08-24-2022 13:46-0400 Body weight 59.88 kg Lm Puckett DO Work Phone: [facility] 08-24-2022 13:46-0400 Diastolic blood pressure 63 mm[Hg] Lm Puckett DO Work Phone: [facility] 08-24-2022 13:46-0400 Heart rate 59 /min Lm Puckett DO Work Phone: [facility] 08-24-2022 13:46-0400 Respiratory rate 16 /min Lm Puckett DO Work Phone: [facility] 08-24-2022 13:46-0400 SaO2% (BldA) [Mass fraction] 100 % Lm Puckett DO Work Phone: [facility] 08-24-2022 13:46-0400 Systolic blood pressure 123 mm[Hg] Lm Puckett DO Work Phone: [facility] 08-02-2022 17:45-0400 Body temperature 97.59 [degF] Donal Nina MD Work Phone: [facility] 08-02-2022 17:45-0400 Diastolic blood pressure 72 mm[Hg] Donal Nina MD Work Phone: [facility] 08-02-2022 17:45-0400 Heart rate 86 /min Donal Nina MD Work Phone: [facility] [employer] 08-02-2022 17:45-0400 Respiratory rate 16 /min Donal Nina MD Work Phone: [facility] [employer] 08-02-2022 17:45-0400 SaO2% (BldA) [Mass fraction] 100 % Donal Nina MD Work Phone: [facility] [employer] 08-02-2022 17:45-0400 Systolic blood pressure 130 mm[Hg] Donal Nina MD Work Phone: [facility] [employer] 12-09-2021 02:24-0400 Body temperature 98.71 [degF] [facility] [employer] 12-09-2021 02:24-0400 Diastolic blood pressure 61 mm[Hg] [facility] [employer] 12-09-2021 02:24-0400 Heart rate 90 /min [facility] [employer] 12-09-2021 02:24-0400 Respiratory rate 20 /min [facility] [employer] 12-09-2021 02:24-0400 SaO2% (BldA) [Mass fraction] 99 % [facility] [employer] 12-09-2021 02:24-0400 Systolic blood pressure 145 mm[Hg] [facility] Encounters Encounter Date Encounter Type Care Provider Facility Start: 06-23-2023 Telephone encounter Bag Bundler RN Obstetrics/Gynecology Procedures Date Procedure Procedure Detail [...] DTaP/Tdap/Td vaccine (6 - Td or Tdap) [facility] Start: 11-15-2024 DTaP/Tdap/Td VACCINES (2 - Td or Tdap) DTaP/Tdap/Td VACCINES (2 - Td or Tdap) [facility] Start: 11-15-2024 Urine microalbumin profile DTaP,Tdap,Td Vaccine (6 - Td or Tdap) [facility] Start: 12-03-2023 CHLAMYDIA SCREENING CHLAMYDIA SCREENING [facility] Start: 12-03-2023 GC (Gonorrhea) Screening (18-24) GC (Gonorrhea) Screening (18-24) [facility] Start: 12-03-2023 Screening for Chlamydia trachomatis Chlamydia Screening (18-24) [facility] Start: 05-05-2023 Depression Assessment Depression Assessment [facility] Start: 01-13-2023 End: 01-13-2023 ambulatory 01/13/2023 OB Visit jack prizer Joni Vega, PARQUETRY LAYER [address] [address] [facility] Start: 01-03-2023 Covid-19 Vaccine ( season) Covid-19 Vaccine ( season) [facility] Start: 01-03-2023 Influenza vaccination Influenza Vaccine (#1) [facility] Start: 12-03-2022 Influenza vaccination Flu vaccine (Season Ended) [facility] Start: 12-03-2022 Refusal of treatment by patient INFLUENZA VACCINE [facility] Start: 11-27-2022 Screening for Chlamydia trachomatis Chlamydia/GC screen [facility] Start: 07-29-2022 DTaP/Tdap/Td vaccine (1 - Tdap) DTaP/Tdap/Td vaccine (1 - Tdap) [facility] Start: 01-03-2022 Influenza vaccination Flu vaccine (#1) [facility] Start: 12-03-2021 Influenza vaccination Flu vaccine (#1) [facility] Start: 07-29-2021 Hepatitis C screening Hepatitis C screen [facility] Start: 07-29-2021 HIV screening HIV Screening [facility] Start: 12-27-2020 COVID-19 Vaccine (3 - Booster for Pfizer series) COVID-19 Vaccine (3 - Booster for Pfizer series) [facility] Start: 12-27-2020 COVID-19 VACCINE (3 - Pfizer series) COVID-19 VACCINE (3 - Pfizer series) [facility] Start: 03-20-2020 Meningococcal B Vaccine: Consider Based On Risk (2 of 2 - Risk Bexsero 2-dose series) Meningococcal B Vaccine: Consider Based On Risk (2 of 2 - Risk Bexsero 2-dose series) [facility] Start: 2019 Screening for Chlamydia trachomatis Chlamydia/GC screen [facility] Start: 07-29-2018 HIV screening HIV screen [facility] Start: 07-29-2017 Peds To Adult Transition Annual Assessment Peds To Adult Transition Annual Assessment [facility] Start: 2015 Depression Screen Depression Screen [facility] Start: 2015 Peds To Adult Transition Initial Discussion Peds To Adult Transition Initial Discussion [facility] Start: 05-18-2015 HPV VACCINE (2 - 2-dose series) HPV VACCINE (2 - 2-dose series) [facility] Start: 07-29-2014 HPV vaccine (1 - 2-dose series) HPV vaccine (1 - 2-dose series) [facility] Start: 08-19-2013 ANNUAL PREVENTIVE PHYSICAL (INCLUDES MAAP) ANNUAL PREVENTIVE PHYSICAL (INCLUDES MAAP) [facility] Start: 07-29-2010 DTaP/Tdap/Td vaccine (1 - Tdap) DTaP/Tdap/Td vaccine (1 - Tdap) [facility] Start: 07-29-2009 Pneumococcal 0-64 years Vaccine (1 - PCV) Pneumococcal 0-64 years Vaccine (1 - PCV) [facility] Start: 07-29-2009 Pneumococcal vaccination Pneumococcal Vaccine (1 of 2 - PCV) [facility] Start: 07-29-2009 PNEUMOCOCCAL VACCINE: Pediatrics (0 to 5 Years) and At-Risk Patients (6 to 64 Years) (1 - PCV) PNEUMOCOCCAL VACCINE: Pediatrics (0 to 5 Years) and At-Risk Patients (6 to 64 Years) (1 - PCV) [facility] Start: 07-29-2004 Varicella vaccine (1 of 2 - 2-dose childhood series) Varicella vaccine (1 of 2 - 2-dose childhood series) [facility] Start: 05-23-2004 Hepatitis B Vaccine (3 of 3 - 3-dose series) Hepatitis B Vaccine (3 of 3 - 3-dose series) [facility] Start: 01-30-2004 COVID-19 Vaccine (#1) COVID-19 Vaccine (#1) [facility] Start: 2003 HEPATITIS B VACCINES (1 of 3 - 3-dose series) HEPATITIS B VACCINES (1 of 3 - 3-dose series) [facility] End: 06-06-2024 ECHO ECHO Cardiology Routine 34 weeks gestation of High risk teen in third trimester Family history of congenital heart defect 1 Occurrences starting 06/06/2023 until 06/06/2024 [facility] Work Phone: Immunizations Immunization Date Immunization Notes Care Provider Eligio cotton 02-07-2020 influenza virus vacc ine, unspecified formulation Bernardo Pripatrice DO Work Phone: [facility] 11-15-2014 human papilloma viru s vaccine, quadrivalent Bernardo Priem DO Work Phone: [facility] 11-15-2014 Meningococcal, MCV4, unspecified conjugate formulation(groups A, C, Y and W-135) Bernardo Priem DO Work Phone: [facility] 11-15-2014 tetanus toxoid, redu irvin diphtheria toxoid, and acellular pertussis vaccine, adsorbed Bernardo Priem DO Work Phone: [facility] Payers Date Payer Category Payer Medicaid [employer] [id number] 2022- [phone] [address] [place] [address] Medicaid [id number] 2020 Unknown [id number]. [id number] 2020 Unknown [id number] 1.2.840.358413.1.13.239.2.7.3. [id number] 2003 Unknown [id number] 2.16.840.1.064180.3.579.2.202 2003 Unknown [id number] 2.16.840.1.984880.3.579.2.202 2003 Unknown [id number] 2.16.840.1.035145.3.579.2.202 2003 Unknown [id number] 2.16.840.1.423764.3.579.2.202 2003 Unknown [id number] 2.16.840.1.502417.3.579.2.201 2003 Unknown [id number] 2.16.840.1.683058.3.579.2.201 2003 Unknown [id number] 2.16.840.1.297306.3.579.2.201 2003 Unknown [id number] 2.16.840.1.330196.3.579.2.201 2003 Unknown [id number] 2.16.840.1.825488.3.579.2.201 2003 Unknown [id number] 2.16.840.1.490021.3.579.2.201 2003 Unknown [id number] 2.16.840.1.444406.3.579.2.201 2003 Unknown [id number] 2.16.840.1.426856.3.579.2.201 2003 Unknown [id number] 2.16.840.1.172767.3.579.2.201 2003 Unknown [id number] 2.16.840.1.374187.3.579.2.201 2003 Unknown [id number] 2.16.840.1.203018.3.579.2.201 1979 Unknown [id number] 2.16840.1.430530.3.579.2.202 1979 Unknown [id number] 2.16840.1.752287.3.579.2.202 1979 Unknown [id number] 2.16840.1.398484.3.579.2.202 Unknown [id number] 2.16840.1.473641.3.579.2.283 Unknown [employer] S[employer]/DAHP [id number] Effective for all dates [address] [place] [address] HMO 1.2.840.307874.1.13.129.2.7.3. 478872.315 Unknown [id number] 2.840.1.142794.3.579.2.246 Unknown [id number] 2.16840.1.976036.3.579.2.246 Unknown [id number] 2.16840.1.596538.3.579.2.246 Unknown [id number] 2.16840.1.998539.3.579.2.246 Unknown [id number] 2.16840.1.490024.3.579.2.246 Unknown [id number] 2.16.840.1.229681.3.579.2.246 Unknown [id number] 2.16840.1.691014.3.579.2.246 Unknown [id number] 2.16.840.1.037279.3.579.2.246 Unknown [id number] 2.16840.1.359424.3.579.2.246 Social History Date Type Detail Facility Start: 12-09-2021 End: 05-22-2023 Tobacco smoking status NHIS Smokes tobacco daily [facility] Phone: History of tobacco use Cigarette Smoker B ON [employer] Phone: Start: 12-09-2021 End: 05-22-2023 Cigarettes smoked current (pack per day) - Reported 0.5 [facility] Start: 12-09-2021 End: 05-22-2023 Tobacco use and exposure Smokeless tobacco non-user [facility] Phone: Start: 12-09-2021 End: 08-24-2022 Alcohol intake Current drinker of alcohol (finding) [facility] Phone: Start: 12-09-2021 History SDOH Alcohol Comment occ [facility] Phone: Start: 2003 Sex Assigned At Not on file B ON [employer] Phone: Start: 11-29-2021 End: 08-24-2022 Exposure to SARS-CoV-2 (event) Not sure [facility] Phone: Start: 12-19-2022 End: 06-06-2023 Alcohol intake Ex-drinker (finding) [facility] Start: 10-20-2022 [facility] Start: 05-22-2023 End: 06-06-2023 Tobacco use panel [facility] The thought of michellei ng myself has occurred to me Never [facility] National Score (1-10 0), lower number is lower risk 73 [facility] Start: 05-22-2023 Alcohol Comment glass of wine on new years [facility] Start: 2005 Sex Assigned At Female [facility] Start: 05-21-2023 Gender identity Identifies as female gender (finding) [facility] Goals Date Patient Goal Desired Activity /State Personal health goal Clinical Notes 05-19-2022 to 06-23-2023 Telephone Encounter - Emely Lopez RN - 06/23/2023 1:15 PM ESTPrenatal Quick Notes - Rosa M Chen APRN.MELVI - 06/16/2023 2:48 PM ESTPatient InstructionsPatient InstructionsDischarge Instructions Note Date & Type Note Facility 06-23-2023 Miscellaneous Notes 2nd risk assessment form submitted 06/23/23 Emely Lopez RN documented in this encounter [facility] 06-16-2023 Miscellaneous Notes RM-Pt doing well. Denies vaginal Bleeding, Leaking fluid, or regular Contractions. Pt reports good movement. Having some [place]. Physical Exam: Gen: no apparent distress Abd: soft, Gravid. Non tender to palpation. See flow sheet GBS done today echo scheduled for 06/30 RTO 1 week Rosa M Chen APRN.MELVI documented in this encounter [facility] 06-16-2023 Instructions Ilene Duarte Ma - 06/16/2023 2:24 PM EST SEQUENTIAL SCREENINGS The [facility] offers sequential screenings for women who are [...] It will require an appointment with our tree trimming line technician. This is not an ultrasound performed [...] the above symptoms, contact our office at [phone] and ask to speak with a nurse. After hours, you can call doctors registry at [phone] OR call [facility] at [phone] and ask to have the doctor interventional radiology tech paged. If you consider this an emergency, dial 9-1-2 or go to your nearest emergency department. NEED HELP? Are you dealing with a violent or abusive relationship? Are you a victim of rape or sexual assult? Call [facility] ([place]) 24 hour Crisis Hotline: 958.130.4107 or 939-859-5142. MANUAL Your Guide to a Healthy manual is now on-line. Visit [facility]org/HealthyPregn ancyGuide to download your free copy documented in this encounter [facility] 06-16-2023 Miscellaneous Notes Rx faxed. Regina Grace RN signed Breast pump [facility]. To SW to sign. Regina Grace RN documented in this encounter [facility] 06-06-2023 Miscellaneous Notes SW- Some acid reflux. [...] Demi Kerr DO documented in this encounter [facility] 06-06-2023 Instructions Natalie Winchester RN - 06/06/2023 1:37 PM EST To schedule Echo: Options to schedule at [place], [place], or [facility]. Videotape Operator's phone number is [phone] Option #3 Counseling and Psychiatry Services [facility] [address] [place] [address] *counseling [facility] [address] [facility] [address] *counseling [address] [address] *counseling [facility] [address] [place] [address] *counseling and psychiatry [address] [address] *counseling [address] [address] *counseling [place] [address] [facility] [address] *counseling [place] [address] [place] [address] *counseling [facility] [address] [place] [address] [facility] [address] [facility], [address] [place] [address] *counseling [facility] [address] [place], [place] [id number] [facility] [address] [place], [place] [address] *counseling G[facility] [address] [place] [address] [facility] [address] [place] [address] *counseling [facility] [address] [place] [address] *counseling [facility] [place] [facility] [address] [place] [address] *counseling and psychiatry [facility], [address] [place], [place] [address] *psychiatry [facility] [phone] *grief counseling, individual and groups *If you ever experience a mental health crisis please call [phone], 911, Please verify with insurance provider for coverage SEQUENTIAL SCREENINGS The [facility] offers sequential screenings for women who are [...] It will require an appointment with our tree trimming line technician. This is not an ultrasound performed [...] the above symptoms, contact our office at [phone] and ask to speak with a nurse. After hours, you can call doctors registry at [phone] OR call [facility] at [phone] and ask to have the doctor interventional radiology tech paged. If you consider this an emergency, dial 01-03- or go to your nearest emergency department. NEED HELP? Are you dealing with a violent or abusive relationship? Are you a victim of rape or sexual assult? Call [facility] ([place]) 24 hour Crisis Hotline: 843.283.5769 or 984-769-5255. MANUAL Your Guide to a Healthy manual is now on-line. Visit [facility]org/HealthyPregn ancyGuide to download your free copy documented in this encounter [facility] 06-05-2023 Note HNO ID: [id number] Author: MIGUELINA GILES LGC Service: ? Author Type: Genetic Counselor Type: Progress Notes Filed: 06/16/2023 14:48 Note Text: Summary: Partner with History of Transposition of the Great Vessels REPRODUCTIVE GENETIC COUNSELING INITIAL VISIT Rima Coffman : 2005 Above identifiers confirmed by Miguelina Giles MS, [facility] Consultation requested by: Azucena Smith APRN, MELVI Date of clinic visit: June 05, 2023 Residence Manager offered/present: No Ms. Coffman is seen via a virtual Distance Health visit today via [employer] platform per patient choice. The visit is conducted synchronously in real-time. I have communicated my name and active licensure. The patient's identity and physical location were verified at the time of this visit. Either the patient or their legal sales representative has been informed of the risks [...] Hemoglobinopathies: A=97.2 A2=2.8; Patient's MCV: 91.1 fL Scientology Diseases: Not Applicable Spinal Muscular Atrophy: Unknown [...] - Patient's ethnicity: White - Partner's ethnicity: Ukrainian, [place] Islander - Patient and/or partner did not report -Swiss, , Mediterranean, Ashkenazi Scientology and/or Swazi-Salvadorean/Cajun ancestries unless noted above. - Patient and partner are NOT consanguineous The remainder of the known family history is negative for infertility, recurrent loss, stillbirth, unexplained infant , defects, malformation syndromes, chromosomal abnormalities, metabolic disorders, developmental delay, mental retardation, known or suspected genetic diseases, and consanguinity except as noted above a (more content not included)... [facility] 06-05-2023 History of Presen t illness Narrative Summary: Partner with History of Transposition of the Great Vessels REPRODUCTIVE GENETIC COUNSELING INITIAL VISIT Rima Coffman : 2005 Above identifiers confirmed by Miguelina Giles MS, [facility] Consultation requested by: Azucena Smith APRN, CNP Date of clinic visit: June 05, 2023 Residence Manager offered/present: No Ms. Coffman is seen via a virtual Distance Health visit today via [employer] platform per patient choice. The visit is conducted synchronously in real-time. I have communicated my name and active licensure. The patient's identity and physical location were verified at the time of this visit. Either the patient or their legal sales representative has been informed of the risks [...] Hemoglobinopathies: A=97.2 A2=2.8; Patient's MCV: 91.1 fL Scientology Diseases: Not Applicable Spinal Muscular Atrophy: Unknown [...] - Patient's ethnicity: White - Partner's ethnicity: Ukrainian, [place] Islander - Patient and/or partner did not report -Swiss, , Mediterranean, Ashkenazi Scientology and/or Swazi-Salvadorean/Cajun ancestries unless noted above. - Patient and [...] reviewed that all babies born in the [facility] are screened for CF at through the [place] Screening Program. Ms. Coffman stated that she [...] his verbal permission, I did review his [facility] record, but unfortunately there was no documentation [...] scheduled for an ultrasound tomorrow with the [facility], I let her know that I would [...] greater than 50% of which was spent [id number] counseling. This plan is being carried out under the oversight of Dr. Adrianne Colón. This note will also be sent to the referring provider via the electronic medical record. Miguelina Giles MS, [facility] Licensed, Certified Genetic Counselor EPIC CC: Azucena Smith APRN, MELVI Referring Physician Dr. Pauline Colón (Superintendent Landfill Operations) documented in this encounter [facility] 05-22-2023 Note HNO ID: [id number] Author: AZUCENA SMITH APRN.SULFURIC ACID PLANT SUPERVISOR Service: ? Author Type: Nurse Practitioner Type: [...] No Multivitamin with Folic acid: Not currently Scientology or heritage: No Would refuse blood transfusion [...] all that apply)? Centering (group care classes), Party Plan Sales Director care Social History: Do you have any [...] harming myself has occurred to me. Never [place] Depression Scale Total 6 Feeling nervous, anxious [...] 06/22/2016 Intolerance MIL (more content not included)... [facility] 02-24-2023 Note Patient presents for care. [...] worsening or new symptoms or other concerns. [facility] 12-19-2022 Emergency department Note Patient discharged to [...] past medical history sections for this patient. Bernarod Xie D.O. Patient is here with headache, [...] headaches. Patient is to follow-up with her LINE UP WORKER team as well. Patient will be discharged [...] Aox4, respirations even/unlabored. documented in this encounter [facility] 12-19-2022 Physician Emergency department Note EMERGENCY DEPARTMENT [...] headaches. Patient is to follow-up with her LINE UP WORK[employer] team as well. Patient will be discharged in otherwise stable condition. I do not see any evidence of subarachnoid hemorrhage, meningitis, nuchal rigidity. Do not believe the patient has any evidence of preeclampsia. Patient will be discharged home. Final impression: ICD-10-CM ICD-9-CM 1. Migraine without status migrainosus, not intractable, unspecified migraine type G43.909 346.90 Electronically signed by: Bernardo Xie DO, [facility]/19/2022 [facility] [employer] Phone: 12-19-2022 Emergency department Note Pt to triage c/o migraine since 1000 today. Pt also 10 weeks . Aox4, respirations even/unlabored. [facility] 08-24-2022 [facility] Discharg e instructions Lm Puckett DO - 08/24/2022 2:47 PM EDT Follow-up with primary care as soon as possible Take OTC medication as needed for pain Return to the ED if symptoms persist or worsen or if you start having shortness of breath or any other symptom of concern. The following attachments cannot be sent through Care Everywhere.Chest Pain (Bahamian)documented in this encounter [facility] [employer] Phone: 08-02-2022 [facility] Discharg e instructions Donal Nina MD - 08/02/2022 6:51 PM EDT Return immediately to the emergency department if you experience new or worsening symptoms, changes in color or sensation of your arm or hand, increased pain, or for any other concerns. documented in this encounter [facility] [employer] Phone: 07-17-2022 Note Encounter Department : [facility] Progress Notes by Nel Cabrera DO at 07/17/2022 3:30 PM Author: Nel Anisha Kylee, DOService: -Author Type: Physician Filed: 07/20/2022 10:20 PMEncounter Date: 07/17/2022Status: Signed Radiotelephone Operator: Nel Cabrera DO (Physician) Rima Coffman [address] [place], [place] [id number] : 16 y.o.: 2005Phone: (home) Encounter Date: [...] friend to establish PCP. +smoker Born in [place], living in [place] Hx irregular menses LMP 2-14-23 Hx [...] Hematological: Negative. Psychia (more content not included)... [facility] 05-19-2022 Note PROCEDURE: CT-TRAUMA CHEST/ABD/PELVIS W IV CONTRAST ONLY, CT-SPINE THORACIC W CONTRAST, CT-SPINE LUMBAR W CONTRAST DATE OF EXAM: 05/19/2022 6:14 PM DEMOGRAPHICS: 16 years old Female INDICATION: Ejxld-vhsbwlo-excvyi trauma, blunt Contrast utilized and relevant clinical information: History: Gphgu-lndibfy-cunghf trauma, blunt. Number of Series/Images: 5. COMPARISON: [...] by: Walt Bautista MD, 05/19/2022 6:[address] [facility] 05-19-2022 Note PROCEDURE: CT-TRAUMA CHEST/ABD/PELVIS W IV CONTRAST ONLY, CT-SPINE THORACIC W CONTRAST, CT-SPINE LUMBAR W CONTRAST DATE OF EXAM: 05/19/2022 6:14 PM DEMOGRAPHICS: 16 years old Female INDICATION: Dycva-fennxip-sxkqmm trauma, blunt Contrast utilized and relevant clinical information: History: Vdjmj-lbubgha-ebkrsz trauma, blunt. Number of Series/Images: 5. COMPARISON: [...] by: Walt Bautista MD, 05/19/2022 6:[address] [facility] 05-19-2022 Note PROCEDURE: CT-TRAUMA CHEST/ABD/PELVIS W IV CONTRAST ONLY, CT-SPINE THORACIC W CONTRAST, CT-SPINE LUMBAR W CONTRAST DATE OF EXAM: 05/19/2022 6:14 PM DEMOGRAPHICS: 16 years old Female INDICATION: Balrg-tusfqec-jjraxf trauma, blunt Contrast utilized and relevant clinical information: History: Eqrgj-jaduitq-cmsgdc trauma, blunt. Number of Series/Images: 5. COMPARISON: [...] by: Walt Bautista MD, 05/19/2022 6:21 PM [facility] 05-19-2022 Note PROCEDURE: CT-HEAD W /O CONTRAST, [...] by: Walt Bautista MD, 05/19/2022 6:[address] [place] [address] 05-19-2022 Note PROCEDURE: CT-HEAD W /O CONTRAST, [...] by: Walt Bautista MD, 05/19/2022 6:[address] [place] [address] documented in this encounter [facility] Phone: [email or web address] note* Diagnosis Wrist pain, acute, left- Primary documented in this encounter [facility] [employer] Phone: evaluation note* Diagnosis Chest pain, unspecified type- Primary documented in this encounter [facility] Phone: evalswhelx note* Diagnosis Migraine without status migrainosus, not intractable, unspecified migraine type- Primary 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 High risk teen in third trimester 32 weeks gestation of state, incidental Family history of cardiac disorder Family history of other cardiovascular diseases [facility] Diagnosis 34 weeks gestation of - Primary state, incidental High risk teen in third trimester Family history of congenital heart defect Family history of congenital anomalies [facility] Diagnosis Encounter for anatomic survey- Primary with care elsewhere in third trimester 34 weeks gestation of state, incidental [facility]* Diagnosis 36 weeks gestation of - Primary state, incidental documented in this encounter [facility] Discharge instructions* Attachments The following attachments cannot be sent through Care Everywhere. * Seizure (Bahamian) [facility]: Hospital Discharge instructions* Attachments The following attachments cannot be sent through Care Everywhere. * Migraine Headache (Bahamian) [facility] for [facility] (narrative)* Outpatient Procedure (Routine) - Pending Review Specialty Diagnoses / Procedures Referred By Julio wade [facility] Diagnoses 34 weeks gestation of High risk teen in third trimester Family history of congenital heart defect Procedures ECHO Demi Kerr MD [address] [place] [address] [facility] [place][Note 2] [facility] [place] [address] [place] [address] Referral ID Status Reason Start Date Expiration Date Visits Requested Visits Authorized [id number] Pending Review Auto-Generat ed Referral 06/06/2023 06/05/2024 1 1 [facility] Summary Purpose Family History No Family [...] Date Diagnosed Date [facility] - [facility] 05/22/2023 [place] 05/22/2023 Problem Noted Date Diagnosed Date [facility] - [facility] 05/22/2023 [place] 05/22/2023 Problem Noted Date Diagnosed Date [facility] - [facility] 05/22/2023 [place] 05/22/2023 Additional Source Comments Reason for Visit [...] Azucena Smith APRN.MELVI [address] [place] [address] [facility] [address] [place] [address] Referral ID Status Reason Start Date Expiration Date V isits Requested Visits Authorized [id number] Closed PCP Requested Referral Auto-Generated Referral 05/22/2023 05/21/2024 1 1 Reason Onset Date Comments Care 06/06/2023 Reason Comments US Specialty Diagnoses / Procedures Referred By Contaleisha t Referred To Contact [facility] Diagnoses Tobacco smoking complicating in third trimester Marijuana use during High risk teen in third trimester Procedures OBSTETRIC ULTRASOUND WHI US PREG UTERUS AFTER 1ST TRIMEST GESTATION Azucena Smith APRN.CNP [address] [place] [address] [facility] [address] [place] [address] Referral ID Status Reason Start Date Expiration Date V isits Requested Visits Authorized [id number] Closed Auto-Generate d Referral 05/22/2023 05/21/2024 1 1 Reason Comments Breast Pump Reason Onset Date Comments Care 06/16/2023 Reason Comments PRAF INFORMATION SOURCE (unrecogn ized section and content) DATE CREATED AUTHOR AUTHOR'S ORGANIZ ATION 10/13/2022 [facility] DATE CREATED AUTHOR AUTHOR'S ORGANIZ ATION 02/26/2023 [facility] DATE CREATED AUTHOR AUTHOR'S ORGANIZ ATION 03/29/2023 Provider Locatio ns DATE CREATED AUTHOR AUTHOR'S ORGANIZ ATION 05/14/[address] [facility] DATE CREATED AUTHOR AUTHOR'S ORGANIZ ATION 05/30/2023 [facility] DATE CREATED AUTHOR AUTHOR'S ORGANIZ ATION 06/19/2023 [facility] Ordered Prescriptions (unrec ognized section and [...] or prosecute any alcohol or drug abuse patient.[facility] the event this information is protected by the Federal Confidentiality of Alcohol and Drug Abuse Patient Records regulations: The Federal rules restrict any use of the information to criminally investigate or prosecute any alcohol or drug abuse patient.[facility] the event this information is protected by the Federal Confidentiality of Alcohol and Drug Abuse Patient Records regulations: The Federal rules restrict any use of the information to criminally investigate or prosecute any alcohol or drug abuse patient.[facility] the event this information is protected by the Federal Confidentiality of Alcohol and Drug Abuse Patient Records regulations: The Federal rules restrict any use of the information to criminally investigate or prosecute any alcohol or drug abuse patient.[facility] the event this information is protected by the Federal Confidentiality of Alcohol and Drug Abuse Patient Records regulations: The Federal rules restrict any use of the information to criminally investigate or prosecute any alcohol or drug abuse patient.[facility] the event this information is protected by the Federal Confidentiality of Alcohol and Drug Abuse Patient Records regulations: The Federal rules restrict any use of the information to criminally investigate or prosecute any alcohol or drug abuse patient.[facility] FOR RECORDS PERTAINING TO PATIENTS WHO ARE [...] BE BASED ON THE PRIMARY CLINICAL RECORDS. [facility] [employer] [facility]. provides no warranty or guarantee of the accuracy or completeness of information in this document.
[2023-06-24] MEDS: Lactated Ringers 1,000 ML 50 ML IV (07:40)
[2023-06-24] MEDS: LACTATED RINGERS 500 ML 999 ML IV (07:52)
[2023-06-24 07:57] LABS: Absolute Lymphocyte Count 3.43 X10^3/uL (0.83-4.51); Basophil# 0.04 X10^3/uL; Basophil% 0.2 % (0-1); Eosinophil# 0.11 X10^3/uL; Eosinophils% 0.5 % (0-5); Hematocrit 35.9 % (37-47); Hemoglobin 11.7 g/dL (12.0-15.0); Lymphocyte # 3.43 X10^3/ul (0.83-4.51); Lymphocyte % 16.3 % (19-41); Mean Corp Hgb Conc 32.6 g/dL (32-36); Mean Corpuscular Hgb 29.2 pg (27.0-32.0); Mean Corpuscular Volume 89.5 fL (81-99); Mean Platelet Vol. 12.3 fl (6.2-12.0); Monocyte# 1.39 X10^3/uL; Monocyte% 6.6 % (0-10); NRBC Flagged by Analyzer 0 % (0-5); Neutrophil # 15.97 X10^3/uL (2.7-7.7); Neutrophil % 75.7 % (47-70); Platelet Count 231 K/mm3 (150-450); RBC Distribution Width CV 12.7 % (11.6-14.6); RBC Distribution Width SD 41.8 fl (35.1-43.9); Red Blood Count 4.01 M/mm3 (4.2-5.4); White Blood Count 21.1 K/mm3 (4.4-11.0)
[2023-06-24 08:10] LABS: Protein:Creat Ratio 288 mg/g CRE (0-200)
[2023-06-24 08:13] LABS: AST(SGOT) 16 U/L (15-37); Alanine Aminotransfer ALT/SGPT 14 U/L (13-56); Creatinine, Serum 0.72 mg/dL (0.55-1.02); EST Glomerular Filtration Rate 111 mL/min (>60); Est Glom Filt Rate - Afr Amer 134 mL/min (>60); Uric Acid 5.2 mg/dL (2.6-6.0)
--- NOTE | 2023-06-24 08:15 | PCM.HP.OB ---
HPI - General General Date of Admission: 06/24/23 HPI Narrative JESSIE BECKER, is a 17 F who presents at 37 weeks 2 Days. Came in this am early labor with elevated BP. GHTN. Admited for labor augmentation. Maternal Data Information RASHI Calculator Estimated Delivery Date Method Current WG Current Estimate 07/13/23 Manual 37w 2d PFSH PFSH Medical History (Updated 06/24/23 @ 08:25 by Jeaneth Darling CNM) Anxiety Depression Psychiatric disorder Trauma Home Medications acetaminophen 650 mg tablet,extended release (8 Hour Pain Reliever) 650 mg PO Q12H PRN see provid 06/08/23 [History Last Taken 06/08/23 19:00 500 mg] vit no.95-ferrous fumarate 28 mg-folic acid 800 mcg tablet () 1 tab PO DAILY 06/08/23 [History Last Taken 06/22/23] Allergy/AdvReac Type Severity Reaction Status Date / Time olive oil Allergy Severe Other Verified 06/23/23 14:23 famotidine [From Pepcid] Allergy Mild Other Verified 06/23/23 14:21 Social History Smoking Status: Current some day smoker History Elective abortions Hx Para 0 Spontaneous abortions Hx # Term Pregnancies Ectopic pregnancies Hx # Pregnancies Multiple births # of living children NST FHR Rate Baby A Baseline: 140 Variability:: Moderate Accelerations:: 15 x 15 Decelerations:: None FHR Category:: Category I Uterine Activity:: Every 2-3 moderate to strong ROS Constitutional Constitutional: Reports systems reviewed and no addt'l complaints, except as documented; Denies headache(s) Eyes Eyes: Denies acute decrease in peripheral vision, blurry vision or change in vision ENT HEENT: Reports systems reviewed and no addt'l complaints, except as documented Cardiovascular Cardiovascular: Denies chest pain or dizziness Respiratory/Chest Respiratory/Chest: Denies cough, dyspnea, dyspnea on exertion, shortness of breath at rest or shortness of breath with exertion Gastrointestinal Gastrointestinal: Denies abdominal pain, diarrhea, nausea or vomiting Genitourinary Genitourinary: Denies abdominal discomfort Musculoskeletal Musculoskeletal: Denies limited range of motion Integumentary Integumentary: Reports systems reviewed and no addt'l complaints, except as documented Neurologic Neurologic: Reports systems reviewed and no addt'l complaints, except as documented Psychiatric Psychiatric: Reports systems reviewed and no addt'l complaints, except as documented Endocrine Endocrinology: Reports systems reviewed and no addt'l complaints, except as documented Hematologic/Lymphatic Hematologic/Lymphatic: Reports systems reviewed and no addt'l complaints, except as documented Allergic/Immunologic Allergic/Immunologic: Reports systems reviewed and no addt'l complaints, except as documented Vital Signs Vital Signs Vital Signs: 06/24/23 06:58 06/24/23 06:58 06/24/23 06:58 Temperature Temperature Source Temporal Pulse Rate 76 Blood Pressure 144/79 H BP Systolic 144 BP Diastolic 79 06/24/23 06:58 Temperature 98.4 F Temperature Source Pulse Rate Blood Pressure BP Systolic BP Diastolic Weight Weight: 171 lb 1.259 oz Body Mass Index (BMI) 28.9 Physical Exam Const alert and oriented x3 General Appearance: cooperative Orientation / Consciousness: awake, oriented to person, oriented to place and oriented to time Exam Limitations: no limitations HEENT normocephalic Head and Scalp: normal to inspection, normocephalic and atraumatic Face and Sinus: normal facial exam Eyes General Eye: normal appearance of both eyes Neck full ROM Chest Chest: symmetrical chest wall rise Resp normal respiratory effort and normal air movement Auscultation: clear to auscultation bilaterally Cardio regular rate, regular rhythm, S1 normal heart sound, S2 normal heart sound, no murmurs, no rub, no gallops and no clicks GI normal to inspection, nondistended, normoactive bowel sounds and non-tender appearance of the vagina normal Bladder / Kidney Exam: no CVA tenderness Manual OB Exam: estimated gestational size appropriate, presentation cephalic, dilated 5, effaced 80, station -1 and other AROM clear fluid Amniotic Fluid: clear amniotic fluid Back/Spine normal ROM Extremity normal to inspection and full ROM Skin no rashes or lesions noted Neuro oriented x3 and moves all extremities Sensorium / Orientation: awake, alert and oriented to person Motor Exam: clonus absent Labs Labs Labs: Blood Type A POSITIVE Antibody Screen NEGATIVE Hct 35.9 % (37-47) L Hgb 11.7 g/dL (12.0-15.0) L Syphilis Total Ab Non-reactive GBS negative RPR negative Rubella Immune GC/CT negative A Positive HBsAG negative HIV negative HepC negative Assessment & Plan (1) Gestational hypertension: (2) Tobacco use during : (3) Marijuana use during : (4) History of cardiac murmur as a child: (5) Family history of congenital heart defect: COMMENT: FOB had transposition of great vessels. (6) ADHD (attention deficit hyperactivity disorder): (7) Financial insecurity: (8) Food insecurity: PLAN: Plan 1) Admit to labor and delivery 2) Routine labs and Preeclampsia labs 3) Continuous EFM and TOCO 4) Epidural for pain management 5) AROM clear fluid 6) collaborative physician and notified of patient status, above assessment, and plan.
[2023-06-24 08:30] LABS: Amphetamine Urine VISTA NEGATIVE (<1000 ng/mL); Barbiturate Urine VISTA NEGATIVE (< 200 ng/mL); Benzodiazepine Urine VISTA NEGATIVE (< 200 ng/mL); Cocaine Urine VISTA NEGATIVE (< 300 ng/mL); Ecstacy Urine VISTA NEGATIVE (< 500 ng/mL); Methadone Urine VISTA NEGATIVE (< 300 ng/mL); PCP Urine VISTA NEGATIVE (< 25 ng/mL); THC Urine VISTA NEGATIVE (< 50 ng/mL); Vista UDS pH Range 6
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
[2023-06-24 08:37] LABS: Syphilis Antibodies Non-reactive
[2023-06-24] MEDS: fentaNYL-bupivacaine (epidural) 100 ML BAG EPIDURAL (08:40)
[2023-06-24] MEDS: Ondansetron 4 MG/2 ML Vial IV (13:14)
[2023-06-24] MEDS: Oxytocin 10 UNITS/ML Vial IM (14:39)
[2023-06-24] MEDS: Lidocaine 1% (20 ml mdv) 20 ML Vial INFILT (14:43)
[2023-06-24] MEDS: Oxytocin 15 Units/NS 250ml 15 UNITS/250 ML IV.SOLN 83 UNITS IV (14:45)
--- NOTE | 2023-06-24 15:13 | EX.PCM.OBRPT ---
Assessment & Plan (1) (normal spontaneous vaginal delivery): (2) Laceration of labia minora: (3) Lactating mother: Maternal Data Information RASHI Calculator Estimated Delivery Date Method Current WG Current Estimate 07/13/23 Manual 37w 2d Vaginal Delivery Maternal Presentation Maternal Presentation: Active Labor Operative Information Date of Procedure: 06/24/23 Pre-Operative Diagnosis: GHTN, Active labor at term Post-Operative Diagnosis: , labial laceration Surgery / Procedure Performed: Spontaneous Vaginal Delivery Type of Anesthesia: Epidural and Local with 1% Lidocaine Estimated Blood Loss: 150 ml Time of Delivery: 14:34 Findings Description of Procedure: Progressed to complete with urge to push. Epidural for pain management. of viable male infant over first degree perineal laceration. APGARS 9,9 respectively. Infant head delivered with body immediately forthcoming. Placed on maternal abdomen, strong cry. Mouth and nares suctioned for secretions. Pitocin started for active 3rd stage management. Cord doubly clamped and cut by FOB after pulsations ceased, delayed cord clamping. Placenta delivered intact via michele, 3 vessel cord intact. Perineum inspected and revealed labial laceration. Repaired with 3.0 vicryl rapide and lidocaine. Fundus firm and hemostasis achieved. EBL 150ml. Mom and baby stable, planning to breastfeed. Family bonding well. notified of delivery. Presentation: Vertex Amniotic Membrane Rupture Type: Artificial Amniotic Fluid Description: Clear Placental Delivery Description: Spontaneous Placenta Disposition: [facility] Cord Vessel Description: 3 Vessels Cord Entanglement: None Infant A Gender: Male (1 minute): 9 (5 minute): 9 Delayed Cord Clamping: Yes Post Vaginal Delivery Medications Given After Delivery: IV Pitocin and IM Pitocin Episiotomy Description: None Laceration: 1st degree (labial) Complication Complications: None
[2023-06-25 00:20] VITALS: BP 131/66; PULSE 82; RESP 18; O2SAT 97
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
[2023-06-25 04:55] VITALS: BP 116/70; PULSE 66; RESP 16; O2SAT 98
[2023-06-25 05:40] LABS: Absolute Lymphocyte Count 2.99 X10^3/uL (0.83-4.51); Absolute Neutrophil Count 14.9 X10^3/uL (2.0-7.7); Basophil# 0.02 X10^3/uL; Basophil% 0.1 % (0-1); Eosinophil# 0.09 X10^3/uL; Eosinophils% 0.4 % (0-5); Hematocrit 31.4 % (37-47); Hemoglobin 10.4 g/dL (12.0-15.0); Lymphocyte # 2.99 X10^3/ul (0.83-4.51); Lymphocyte % 14.9 % (19-41); Mean Corp Hgb Conc 33.1 g/dL (32-36); Mean Corpuscular Hgb 29.5 pg (27.0-32.0); Mean Corpuscular Volume 89.2 fL (81-99); Mean Platelet Vol. 12.4 fl (6.2-12.0); Monocyte# 1.85 X10^3/uL; Monocyte% 9.2 % (0-10); NRBC Flagged by Analyzer 0 % (0-5); Neutrophil # 14.92 X10^3/uL (2.7-7.7); Neutrophil % 74.6 % (47-70); POSITIVE DIFFERENTIAL YES; Platelet Count 181 K/mm3 (150-450); RBC Distribution Width CV 12.7 % (11.6-14.6); RBC Distribution Width SD 41.5 fl (35.1-43.9); Red Blood Count 3.52 M/mm3 (4.2-5.4)
[2023-06-25 05:55] LABS: Differential Indicated SCAN CRITERIA MET
[2023-06-25 06:16] LABS: Differential Comment SCANNE
[2023-06-25 08:00] VITALS: BP 132/82; PULSE 64; RESP 16; TEMP 36.8; O2SAT 98
--- NOTE | 2023-06-25 08:29 | DS.PCM_ITS ---
Providers Date of Admission: 06/24/23 Primary Care Physician: No Primary Care Phys Reason For Visit: VAG DELIVERY Diagnosis Discharge Diagnosis (1) (normal spontaneous vaginal delivery): Status: Acute Code(s): O80 - Encounter for full-term uncomplicated delivery (2) Laceration of labia minora: Status: Acute Code(s): S31.41XA - Laceration without foreign body of vagina and vulva, initial encounter (3) Lactating mother: Status: Acute Code(s): Z39.1 - Encounter for care and examination of lactating mother Plan PPD 1 Routine Care Blood pressures within normal ranges Breast feeding Denies pain Desires discharge home tomorrow Medications at Discharge Home Medications acetaminophen 650 mg tablet,extended release (8 Hour Pain Reliever) 650 mg PO Q12H PRN see provid 06/08/23 vit no.95-ferrous fumarate 28 mg-folic acid 800 mcg tablet () 1 tab PO DAILY 06/08/23 Hospital Course Operations None Procedures None Summary of Care Provided Hospital Course: Patient had . Hospital course was uneventful. Physical Exam Narrative Patient seen at bedside. Feeling good. Denies any pain. Ambulating and voiding without difficulty. Lochia is minimal. Denies any headaches, vision changes, RUQ pain. Needs evaluation by social work. Const alert and no apparent distress General Appearance: cooperative and comfortable Exam Limitations: no limitations HEENT normocephalic Eyes General Eye: normal appearance of both eyes Neck full ROM General: normal visual inspection Chest Chest: symmetrical chest wall rise Resp normal respiratory effort and normal air movement Effort and Inspection: symmetric chest movement Auscultation: clear to auscultation bilaterally Cardio regular rate and regular rhythm GI normal to inspection, nondistended, normoactive bowel sounds Back/Spine normal ROM Extremity full ROM and no calf tenderness General Extremity: normal exam except as noted Skin no rashes or lesions noted Neuro CN's II-XII intact bilaterally Psych mental status grossly normal Weight / BMI Weight Weight: 171 lb 1.259 oz Body Mass Index (BMI) 28.9 ABG / Lab / Microbiology Data 06/25/23 04:59 06/24/23 07:40 Laboratory: Laboratory Results - last 24 hr 06/24/23 07:40: Urine Opiates Screen NEGATIVE, Urine Methadone Screen NEGATIVE, Ur Barbiturates Screen NEGATIVE, Ur Phencyclidine Scrn NEGATIVE, Ur Amphetamines Screen NEGATIVE, MDMA (Ecstasy) Screen NEGATIVE, U Benzodiazepines Scrn NEGATIVE, Urine Cocaine Screen NEGATIVE, U Cannabinoids Screen NEGATIVE, Syphilis Total Ab Non-reactive, Blood Type A POSITIVE, Antibody Screen NEGATIVE 06/25/23 04:59: WBC 20.0 H, RBC 3.52 L, Hgb 10.4 L, Hct 31.4 L, MCV 89.2, MCH 29.5, MCHC 33.1, RDW Std Deviation 41.5, RDW Coeff of Eric 12.7, Plt Count 181, MPV 12.4 H, Immature Gran % (Auto) 0.800, Neut % (Auto) 74.6 H, Lymph % (Auto) 14.9 L, [place] % (Auto) 9.2, Eos % (Auto) 0.4, Baso % (Auto) 0.1, Absolute Neuts (auto) 14.9 H, Absolute Lymphs (auto) 2.99, Nucleated RBC % 0, Differential Comment SCANNE, Diff Path Review May foll D/C Instructions Discharge Diet: No restrictions May resume sexual activity in: 6-8 weeks Weight Bearing Status: Weight bearing as tolerated Call your doctor if you observe: Fever of 101 or Higher, Inability to urinate, Using more than 1 pad per hour, Shortness of breath, Chest pain, Calf discomfort and Uncontrolled pain Please Follow Up With: Pniky Tijerina CNM When: 2 weeks virtual visit/ 6 weeks in office Meaningful Use Info Meaningful Use Diagnoses (Choose all that apply): None applicable Discharge Plan Admission Admit Date/Time: 06/24/23 07:20 Primary Reason for Your Visit: Labor and Delivery Attending Provider: Jeaneth Darling Primary Care Provider: Care PhysicianRoxy Primary Discharge Orders/Prescriptions Prescriptions: Continued PNV cmb#95-ferrous fumarate-FA [] 28 mg iron- 800 mcg tablet 1 tab PO DAILY No Action acetaminophen [8 Hour Pain Reliever] 650 mg tablet extended release 650 mg PO Q12H PRN (Reason: see provid) Referrals / Follow Up: Care PhysicianRoxy Primary [Primary Care Provider] - Disposition Disposition (needs filled in before D/C Order can be placed): Home, Self Care
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
[2023-06-25 11:38] VITALS: BP 135/84; PULSE 98; RESP 16; TEMP 36.7
[2023-06-25 12:35] LABS: Pathologist Review Reviewed
[2023-06-25] MEDS: Influenza Virus Vac Quad 23-24 60 MCG/0.5 ML SYRINGE IM (15:25)
[2023-06-25 15:53] VITALS: BP 124/76; PULSE 80; RESP 16; TEMP 36.7; O2SAT 99
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
--- NOTE | 2023-06-25 16:08 | CASEMGMT ---
Social Work Assessment Labor and Delivery Unit Patient Address: Phone number: Date of Referral: Time of Referral:? Referred By: Date of Intervention: ?? Time of Intervention:? Reason for Referral:? History obtained from: medical records, MOB and FOB Household composition: Patient's parent/guardian status:? ? Medical History: ? Educational Status:? Financial Status: Infant Supplies:?? Childcare/Caregiver(s):? Transportation:?? Programs/Agencies Involved: ??? Children Services/Legal Issues:??? Behavioral Health Issues: ??Mental Health History:??? Substance Use History:?? Family History:? Drug Screens: ?? Family/Social Stressors:? Support Systems: Depression/Shaken Baby/Safe Sleeping:? ASSESSMENT:? Safe Plan of Care for related to substance use:? PLAN:? ?No other services requested or indicated.
[2023-06-25 20:10] VITALS: BP 136/72; PULSE 75; RESP 16; TEMP 36.7; O2SAT 98
[2023-06-26 02:00] VITALS: BP 131/83; PULSE 78; RESP 16; TEMP 36.8; O2SAT 98
--- NOTE | 2023-06-26 07:10 | PCM.DC.SUM ---
Providers Date of Admission: 06/24/23 Primary Care Physician: No Primary Care Phys Reason For Visit: VAG DELIVERY Diagnosis Discharge Diagnosis (1) (normal spontaneous vaginal delivery): Status: Acute Code(s): O80 - Encounter for full-term uncomplicated delivery (2) Laceration of labia minora: Status: Acute Code(s): S31.41XA - Laceration without foreign body of vagina and vulva, initial encounter (3) Lactating mother: Status: Acute Code(s): Z39.1 - Encounter for care and examination of lactating mother Plan PPD 2 Formula feeding BP normal ranges Preeclampsia precautions reviewed RTO for PP visit Medications at Discharge Home Medications acetaminophen 650 mg tablet,extended release (8 Hour Pain Reliever) 650 mg PO Q12H PRN see provid 06/08/23 vit no.95-ferrous fumarate 28 mg-folic acid 800 mcg tablet () 1 tab PO DAILY 06/08/23 Hospital Course Operations None Procedures None Summary of Care Provided Minutes Spent on Discharge: 15 Hospital Course: Patient had . Hospital course uneventful. Physical Exam Narrative Patient seen at bedside. Denies any pain. Feeling good. Ambulating and voiding without difficulty. Switched to formula feeding. Seen by social work and has gotten car seat. Desires discharge home. Const alert and no apparent distress General Appearance: cooperative and comfortable Exam Limitations: no limitations HEENT normocephalic Eyes General Eye: normal appearance of both eyes Neck full ROM General: normal visual inspection Chest Chest: symmetrical chest wall rise Resp normal respiratory effort and normal air movement Effort and Inspection: symmetric chest movement Auscultation: clear to auscultation bilaterally Cardio regular rate and regular rhythm GI normal to inspection, nondistended, normoactive bowel sounds Back/Spine normal ROM Extremity full ROM and no calf tenderness General Extremity: normal exam except as noted Skin no rashes or lesions noted Neuro CN's II-XII intact bilaterally Psych mental status grossly normal Weight / BMI Weight Weight: 171 lb 1.259 oz Body Mass Index (BMI) 28.9 ABG / Lab / Microbiology Data 06/25/23 04:59 06/24/23 07:40 Laboratory: Laboratory Results - last 24 hr 06/25/23 04:59: Diff Path Review Reviewed D/C Instructions Discharge Diet: No restrictions May resume sexual activity in: 6-8 weeks Weight Bearing Status: Weight bearing as tolerated Call your doctor if you observe: Fever of 101 or Higher, Inability to urinate, Using more than 1 pad per hour, Shortness of breath, Chest pain, Calf discomfort and Uncontrolled pain Please Follow Up With: Pinky Tijerina CNM When: 2 weeks virtual visit/ 6 weeks in office Meaningful Use Info Meaningful Use Diagnoses (Choose all that apply): None applicable Discharge Plan Admission Admit Date/Time: 06/24/23 07:20 Primary Reason for Your Visit: Labor and Delivery Attending Provider: Jeaneth Darling Primary Care Provider: Care Physician,No Primary Discharge Orders/Prescriptions Prescriptions: Continued PNV cmb#95-ferrous fumarate-FA [] 28 mg iron- 800 mcg tablet 1 tab PO DAILY No Action acetaminophen [8 Hour Pain Reliever] 650 mg tablet extended release 650 mg PO Q12H PRN (Reason: see provid) Referrals / Follow Up: Care Physician,No Primary [Primary Care Provider] - Disposition Disposition (needs filled in before D/C Order can be placed): Home, Self Care
[2023-06-26 08:35] VITALS: BP 130/87; PULSE 69; RESP 16; TEMP 36.8; O2SAT 100
[2023-06-26 13:07] VITALS: BP 125/76; PULSE 79; RESP 16; O2SAT 99
--- NOTE | 2023-06-26 14:39 | CASEMGMT ---
Labor and Delivery Independent Sales Representative Maricel presented to bedside and introduced self to mother of baby (SHUN Abarca) again. Present at bedside was maternal grandma, FOShannon not here at this time. Sw asked MOB if she had an opportunity to review resources that sw provided her with yesterday. MOB said that she looked at them and then packed them in her folder in preparation for discharge today. Sw asked MOB if she would like sw to help her in getting an appointment scheduled with a mental health agency. MOB said that she has all the phone numbers she needs and wants to wait to make phone calls until she gets home. Sw offered again and said that way it is one less thing that MOB needs to worry about once she is at home, MOB again denied and said that she can make the call herself when she wants to. Sw provided support and asked if MOB needed anything else prior to discharge and MOB said no. Valerie Freitas, PATTERN WEAVER, LAYER OFF
--- NOTE | 2023-06-30 14:42 | NURSING ---
Attempted follow up phone call. Phone call goes to message stating thank you for calling financial services. Wrong number.
--- NOTE | 2023-07-10 15:19 | NURSING ---
delivery provider corrected.
== END 2023-06-26 13:30 | disposition home or self-care (01) | DRG 560 ==
LOC: WPOUT 07:23 → WP 07:23
PROVIDERS: Obstetrics & Gynecology; Admitting Provider Advanced Practice Midwife; Referring Provider Advanced Practice Midwife; Visit Provider Advanced Practice Midwife
DX: O13.4 Gestational [pregnancy-induced] hypertension without significant proteinuria, complicating childbirth (principal); Z37.0 Single live birth; O99.324 Drug use complicating childbirth; F12.99 Cannabis use, unspecified with unspecified cannabis-induced disorder; F41.9 Anxiety disorder, unspecified; F17.200 Nicotine dependence, unspecified, uncomplicated; O99.344 Other mental disorders complicating childbirth; F43.10 Post-traumatic stress disorder, unspecified; O70.0 First degree perineal laceration during delivery; F90.9 Attention-deficit hyperactivity disorder, unspecified type; Z59.41 Food insecurity; Z59.86 Financial insecurity; Z3A.37 37 weeks gestation of pregnancy; O99.334 Smoking (tobacco) complicating childbirth; Z82.79 Family history of other congenital malformations, deformations and chromosomal abnormalities
CPT/HCPCS: 36415; 59025; 59050; 80307; 82565; 82570; 84156; 84450; 84460; 84550; 85025; 85027; 86780; 86850; 86900; 86901; 99221; J7120; 90686; G0378; J2405